=== PATIENT | female | born 2000 | race Caucasian/White ===

== ENCOUNTER → 2020-08-29 13:28 | Outpatient (BNVA) | payer MEDICAID, SELFPAY | PROVIDERS: Visit Provider Advanced Practice Midwife | DX: Z30.017 Encounter for initial prescription of implantable subdermal contraceptive (principal) | CPT/HCPCS: 11981; 11982 ==

== ENCOUNTER 2024-02-23 15:15 | Outpatient (REF) | payer MEDICAID, SELFPAY ==
[2024-02-23 16:52] LABS: Estimated Average Glucose 100 mg/dL; Hemoglobin A1c % 5.1 % (<6.0)
[2024-02-23 16:57] LABS: Alanine Aminotransferase 13 U/L (0-31); Albumin Level 4.4 g/dL (3.5-5.0); Alkaline Phosphatase 72 U/L (39-117); Anion Gap 13 (12-20); Aspartate Amino Transferase 16 U/L (5-31); Bilirubin Total 0.4 mg/dL (0.0-1.0); Blood Urea Nitrogen 12 mg/dL (9-16); Calcium 9.6 mg/dL (8.4-10.2); Carbon Dioxide 25 mmol/L (22-29); Chloride 104 mmol/L (96-108); Cholesterol 104 mg/dL (<200); Estimated Glomerular Filt Rate > 60; Glucose Random 98 mg/dL (60-115); HDL Cholesterol 44 mg/dL (>40); LDL Cholesterol Calculated 50 mg/dL (<100); Potassium 4.1 mmol/L (3.3-5.1); Sodium 138 mmol/L (135-145); Total Protein 7.6 g/dL (6.5-8.0); Triglycerides 51 mg/dL (<150)
[2024-02-23 17:15] LABS: TSH reflex Free T4 0.66 uIU/mL (0.32-4.0)
[2024-02-23 17:23] LABS: Reflex LDLD? No
== END 2024-02-23 15:16 | disposition home or self-care (01) ==
LOC: HO.HHCL 15:15
PROVIDERS: Visit Provider Family Medicine
DX: E66.09 Other obesity due to excess calories (principal); Z83.3 Family history of diabetes mellitus; Z68.32 Body mass index [BMI] 32.0-32.9, adult
CPT/HCPCS: 36415; 80053; 80061; 83036; 84443

== ENCOUNTER 2025-07-02 14:08 | Outpatient (REF) | payer OTHER, SELFPAY ==
--- OUTSIDE RECORDS SUMMARY | 2025-07-02 11:15 | XMS_ITS | Encounter Summary ---
Author Organization [employer] Address [address] [facility] [facility] 7 [place] [address] Care Team Providers Care Rug Dyer Helper Name Role Phone Addie Morales MD Primary Care Provider [phone] Encounter Details Date Type Department Care Team (Late st Contact Info) Description 07/02/2025 11:15 AM EDT Office Visit [facility] [address] [place], [place] [phone] Rashida Chen FNP [address] [place] [address] Vaginal discharge (Primary Dx); Sensation of pressure in bladder area Social History Tobacco Use Types Packs/Day Years Used Date Smoking Tobacco: Never Passive Smoke Exposure: Never Smokeless Tobacco: Never Alcohol Use Standard Drinks/Week Comments Yes 0 (1 standard drink = 0.6 oz pur e alcohol) Depression Answer Date Recorded Patient Health Questionnaire-9 Score 0 02/23/2024 Patient Health Questionnaire-9 Score 0 02/23/2024 Last PHQ-9: Questionnaire Data Not on file 0 02/23/2024 Housing Stability Answer Date Recorded What is your housing situation today? I have christian mckenzie 02/23/[address] you li ve. Do you have problems with any of the following? None of the above 02/23/2024 Food Insecurity Answer Date Recorded Within the past 12 months, y ou worried that your food would run out before you got money to buy more: Never True 02/23/2024 Within the past 12 months,th e food you bought just didn't last and you didn't have enough money to get more: Never True 10/2023 Transportation Answer Date Recorded In the past 12 months, has l ack of transportation kept you from medical appts, meetings, work or from getting things needed for daily living? No 02/23/2024 Utilities Answer Date Recorded In the past 12 months, has t he electric, gas, oil or water company threatened to shut off services in your home? No 02/23/2024 Depression Answer Date Recorded Patient Health Questionnaire-2 Score 0 02/23/2024 Comments No Sex and Gender Information Value Date Recorded Sex Assigned at Female 08/24/2022 10:26 AM EDT Legal Sex Female 10:26 AM EDT Gender Identity Female 08/24/2022 10:26 AM EDT Sexual Orientation Straight 08/24/2022 10 :26 AM EDT documented as of this encounter Last Filed Vital Signs Vital Sign Reading Time Taken Comments Blood Pressure 112/66 07/02/2025 11:06 AM EDT Pulse 67 07/02/2025 11:06 AM EDT Temperature 36.8 C (98.3 F) 07/02/2025 11:06 AM EDT Respiratory Rate 16 07/02/2025 11:06 AM EDT Oxygen Saturation 98% 07/02/2025 11:06 AM EDT Inhaled Oxygen Concentration - - Weight 71 kg (156 lb 8 oz) 07/02/2025 11:06 AM E DT Height 150.7 cm (4' 11.35 ) 07/02/2025 11:06 AM EDT Body Mass Index 31.24 07/02/2025 11:06 AM EDT documented in this encounter Progress Notes * TERESA Pradhan - 07/02/2025 11:15 AM EDT Candido Patel, 24 years who presents for acute visit Vaginal Odor and Discharge - Irregular periods after insertion of Nexplanon, with current implant placed 2 years ago - Periods became regular after initial irregularity, then developed strong vaginal odor about 1 year ago, especially after intercourse and before menstrual cycle - Odor described as very strong and unpleasant, persistent despite frequent washing - Noted grayish or grayish-white discharge, sometimes straight green, occasionally increased in quantity requiring frequent underwear changes - Odor and discharge present almost daily, worse after sex - Family history of cervical cancer (mother underwent hysterectomy 2-3 years ago) - No prior treatment or sample collection for odor/discharge - Partner changed diet in attempt to help with symptoms - Skipped period in May 2025 - Used [id number] boric acid suppository on prior to visit, based on family advice - Developed vaginal bleeding starting Sunday, June 29, 2025, described as vibrant red and different from usual menstrual blood - Bleeding lasted Wednesday through Wednesday, resolved by morning of July 02, 2025 - Severe pelvic pain during bleeding, described as similar to labor pain, resolved after taking ibuprofen on July 01, 2025 - No pain since July 01, 2025 Urinary Symptoms - Reports persistent pressure sensation in pelvic area, especially when needing to urinate and while sitting - Denies pain with urination Other Symptoms - Denies pain or bleeding with intercourse - Denies nausea or vomiting - Denies fever, chills, headache or pelvic pain Problem List[1] Allergies[2] Review of Systems Constitutional: Negative for chills, fatigue and fever. Respiratory: Negative for cough, chest tightness, shortness of breath and wheezing. Cardiovascular: Negative for chest pain and palpitations. Gastrointestinal: Negative for abdominal distention, abdominal pain, constipation, diarrhea, nauseaand vomiting. Skin: Negative for pallor. Neurological: Negative for dizziness, syncope, speech difficulty, weakness, light-headedness, numbness and headaches. Vitals: 07/02/25 1106 BP: 112/66 BP Location: Left arm Patient Position: Sitting BP Cuff Size: Adult Pulse: 67 Resp: 16 Temp: 98.3 ??F (36.8 ??C) TempSrc: Oral SpO2: 98% Weight: 156 lb 8 oz (71 kg) Height: 4' 11.35 (1.507 m) Physical Exam Constitutional: Appearance: Normal appearance. HENT: Head: Normocephalic and atraumatic. Right Ear: Tympanic membrane, ear canal and external ear normal. Left Ear: Tympanic membrane, ear canal and external ear normal. Nose: Nose normal. No congestion. Mouth/Throat: Mouth: Mucous membranes are moist. Pharynx: Oropharynx is clear. Eyes: Extraocular Movements: Extraocular movements intact. Pupils: Pupils are equal, round, and reactive to light. Cardiovascular: Rate and Rhythm: Normal rate and regular rhythm. Pulses: Normal pulses. Heart sounds: Normal heart sounds. No murmur heard. Pulmonary: Effort: Pulmonary effort is normal. Breath sounds: Normal breath sounds. No wheezing. Chest: Chest wall: No tenderness. Abdominal: General: Abdomen is flat. Bowel sounds are normal. Palpations: Abdomen is soft. Tenderness: There is no abdominal tenderness. There is no right CVA tenderness, left CVA tenderness, guarding or rebound. Musculoskeletal: General: Normal range of motion. Cervical back: Normal range of motion. Right lower leg: No edema. Left lower leg: No edema. Skin: General: Skin is warm and dry. Capillary Refill: Capillary refill takes less than 2 seconds. Findings: No bruising. Neurological: General: No focal deficit present. Mental Status: She is alert and oriented to person, place, and time. Cranial Nerves: No cranial nerve deficit. Sensory: No sensory deficit. Psychiatric: Mood and Affect: Mood normal. Behavior: Behavior normal. Thought Content: Thought content normal. Judgment: Judgment normal. Assessment & Plan Vaginal discharge - Vaginal discharge with fishy odor, bar or greenish color, and increased volume is most likely bacterial vaginosis (BV). Differential diagnosis includes candidiasis and trichomoniasis. - Explained to patient bleeding and cramping most likely r/t menses. Boric acid may cause burning and irritation. - Ordered BV panel including tests for Connie and trichomonas. Advised to avoid intravaginal products such as boric acid and douching. Will review results and initiate appropriate treatment if indicated. Orders: Bacterial Vaginosis Panel Sensation of pressure in bladder area Negative for pelvic / lower abdominal pain Reports sensation of pressure in bladder area before and after urination Negative for flank blood, itch or fever Ordered urine analysis with reflex to culture Orders: Urinalysis, Complete, with Reflex to Culture; Future Current Medications[3] [employer] Resident Attestation: [employer] , have reviewed the resident's note and agree with the assessment & plan of care as documented above. [1] Patient Active Problem List Diagnosis Allergic rhinitis Asthma Posttraumatic stress disorder Mixed anxiety and depressive disorder [2] No Known Allergies [3] Current Outpatient Medications: albuterol 108 (90 Base) MCG/ACT inhaler, Inhale 2 puffs every 4 (four) hours if needed for wheezingor shortness of breath. Maximum 8 puffs per day, Disp: 18 g, Rfl: 3 ibuprofen 800 MG tablet, Take one tablet with food every eight hours x 7 days for vaginal bleeding., Disp: 21 tablet, Rfl: 0 documented in this encounter Miscellaneous Notes * Assessment & Plan Note - TERESA Pradhan - 07/02/2025 11:15 AM EDT Associated Problem(s): Vaginal discharge - Vaginal discharge with fishy odor, bar or greenish color, and increased volume is most likely bacterial vaginosis (BV). Differential diagnosis includes candidiasis and trichomoniasis. - Explained to patient bleeding and cramping most likely r/t menses. Boric acid may cause burning and irritation. - Ordered BV panel including tests for Connie and trichomonas. Advised to avoid intravaginal products such as boric acid and douching. Will review results and initiate appropriate treatment if indicated. Orders: Bacterial Vaginosis Panel * Assessment & Plan Note - TERESA Pradhan - 07/02/2025 11:15 AM EDT Associated Problem(s): Sensation of pressure in bladder area Negative for pelvic / lower abdominal pain Reports sensation of pressure in bladder area before and after urination Negative for flank blood, itch or fever Ordered urine analysis with reflex to culture Orders: Urinalysis, Complete, with Reflex to Culture; Future documented in this encounter Plan of Treatment Upcoming Encounters Date Type Department Care Team (Late st Contact Info) Description 07/25/2025 3:00 PM EDT Procedure Visit [facility] [address] [place] [address] Shandra Davis CNM [address] [place] [address] 08/20/2025 2:00 PM EDT Office Visit [facility] [address] [place] [address] Addie Morales MD [address] [place] [address] Scheduled Orders Name Type Priority Associated Diagnoses Orde r Schedule Urinalysis, Complete, with Reflex to Culture Lab Routine Sensation of pressure in bladder area Expected: 07/02/2025 (Approximate), Expires: 07/02/2026 documented as of this encounter Procedures Procedure Name Priority Date/Time Associated Diagnosis Comments BACTERIAL VAGINOSIS PANEL Routine 07/02/2025 11:30 AM EDT Vaginal discharge documented in this encounter Results * Bacterial Vaginosis Panel (07/02/2025 11:30 AM EDT) TRICHOMONAS VAGINALIS DETECTION BY PCR NOT DETECTED Not Detect [facility] BACTERIAL VAGINOSIS DETECTION BY PCR NEGATIVE Negative [facility] Comment:The BV organism targ ets of the Xpert Xpress MVP test can becommensal in women; Xpert Xpress MVP positive results forbacterial vaginosis should be considered in conjunction withother clinical and patient information to determine thedisease status. Organisms that are not detected by the XpertXpress MVP test have also been reported to be associatedwith BV and aerobic vaginitis.The Xpert Xpress MVP test performance has not been evaluatedin patients under the age of 14. CONNIE GROUP DETECTION BY PCR NOT DETECTED Not Detect [facility] Connie glab krusei PCR NOT DETECTED Not Detect [facility] Swab Vaginal structure / Unknown 07/02/2025 11:30 AM EDT 07/02/2025 2:24 PM EDT us Rashida [facility] MICROBIOLOGY - GENERAL ORD ERABLES Final Result [facility] [address] [place] [address] [phone] documented in this encounter Visit Diagnoses Diagnosis Vaginal discharge- Primary Leukorrhea, not specified as infective Sensation of pressure in bladder area documented in this encounter Additional Health Concerns Assessment Noted Time PHQ-9 Depression Total Score: 0 02/23/20 24 2:19 PM EDT documented as of this encounter Care Teams Rug Dyer Helper Relationship Specialty Start Date End Date Addie Morales MD [address] [place] [address] PCP - General Family Medicine 08/08/14 documented as of this encounter
[2025-07-02 14:30] LABS: Appearance Urine Clear; Glucose Urine UA Negative (Negative); PH 7.5 (5.0-9.0); Specific Gravity - Urine 1.015 (1.005-1.025); UMIC TRIGGER UACC YES
[2025-07-02 15:05] LABS: UACC Culture Trigger YES
[2025-07-02 15:40] LABS: Bacterial Vaginosis PCR NEGATIVE (Negative); Candida Group PCR NOT DETECTED (Not Detect); Candida glab krusei PCR NOT DETECTED (Not Detect); Trichomonas vaginalis PCR NOT DETECTED (Not Detect)
--- OUTSIDE RECORDS SUMMARY | 2025-07-02 16:31 | XMS_ITS | Encounter Summary ---
Author Organization [employer] Address [address] [facility] [address] [address] [place] [address] Care Team Providers Care Manager Reliability Name Role Phone Addie Morales MD Primary Care Provider Reason for Visit * Reason Onset Date Comments Chart Prep 06/29/2025 Encounter Details Date Type Department Care Team ([facility] st Contact Info) Description 06/29/2025 Telephone [facility] [address] [place], [place] [phone] Rashida Chen FNP [address] [place] [address] Chart Prep Social History Tobacco Use Types Packs/Day Years [...] AM EDT documented as of this encounter Miscellaneous Notes * Telephone Encounter - Adri Steele [place] - 06/29/2025 9:18 AM EDT Chart Prep Labs: not applicable Images: not applicable Referrals: not applicable Vaccines due: Covid, Flu, and PCV20 Screenings: LMP and HIV, HEP C. Overdue care gaps: SBIRT, SDOH, PHQ-9, GAGE-7, Oral health screening, Disability screen, and Tobacco documented in this encounter Plan of Treatment Upcoming Encounters Date Type Department Care Team (Late st Contact Info) Description 07/25/2025 3:00 PM EDT Procedure Visit [facility] [address] [place] [phone] Shandra Davis CNM [address] [place] [address] 08/20/2025 2:00 PM EDT Office Visit [facility] [address] [place] [address] [phone] Addie Morales MD [address] [place] [address] documented as of this encounter Visit Diagnoses Not on filedocumented in this encounter Additional Health Concerns Assessment Noted Time PHQ-9 Depression Total Score: 0 02/23/20 24 2:19 PM EDT documented as of this encounter Care Teams Manager Reliability Relationship Specialty Start Date End Date Addie Morales MD [address] [place] [address] PCP - General Family Medicine 08/08/14 documented as of this encounter
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
--- OUTSIDE RECORDS SUMMARY | 2025-07-02 16:31 | XMS_ITS | Encounter Summary ---
Author Organization [employer] Address [address] [place] [address] 7 [place] [address] Care Team Providers Care E D Tech Name Role Phone Addie Morales MD Primary Care Provider [phone] Reason for Visit * Reason Onset Date Comments Results 07/02/2025 Encounter Details Date Type Department Care Team ([facility] st Contact Info) Description 07/02/2025 Results Follow-Up [facility] [address] [place] [address] Rashida Chen FNP [address] [place] [address] Urinalysis w/reflex microscopic, Urinalysis, Complete, with Reflex to Culture Social History Tobacco Use Types Packs/Day Years [...] encounter Miscellaneous Notes * Telephone Encounter - Brunilda Tomas RN - 07/02/2025 4:16 PM EDT TC placed to pt to inform and advise of below provider message. No answer, LVM to call office back and ask to speak to the blue team nurses. Will task for re- attempt on 07/03/25. ----- Message from Rashida Chen sent at 07/02/2025 4:08 PM EDT ----- Please can you let Candido know her tests came back negative for BV, salbador, trich. Anytime she feels symptoms she should come to the clinic or [place] so that we can do labs. However she is positive for UTI and have sent antibiotics to her Pharmacy Thank you ----- Message ----- From: Interface, Lab Results In Sent: 07/02/2025 2:31 PM EDT To: TERESA Pradhan * Result Encounter Note - TERESA Pradhan - 07/02/2025 4:08 PM EDT Please can you let Candido know her tests came back negative for BV, salbador, trich. Anytime she feels symptoms she should come to the clinic or [facility] so that we can do labs. However she is positive for UTI and have sent antibiotics to her Pharmacy Thank you documented in this encounter Plan of Treatment Upcoming Encounters Date Type Department Care Team (Late st Contact Info) Description 07/25/2025 3:00 PM EDT Procedure Visit [facility] [address] [place] [phone] Shandra Davis CNM [address] [place], [place] [phone] 08/20/2025 2:00 PM EDT Office Visit [facility] [address] [place], [place] [phone] Addie Morales MD [address] [place] [address] [phone] documented as of this encounter Visit Diagnoses Diagnosis Acute cystitis without hematuria- Primary documented in this encounter Additional Health Concerns Assessment Noted Time PHQ-9 Depression Total Score: 0 02/23/20 24 2:19 PM EDT documented as of this encounter Care Teams E D Tech Relationship Specialty Start Date End Date Addie Morales MD [address] [place] [phone] PCP - General Family Medicine 08/08/14 documented as of this encounter
--- OUTSIDE RECORDS SUMMARY | 2025-07-02 16:31 | XMS_ITS | Encounter Summary ---
Author Organization [employer] Address [address] [facility] 7t [place] [address] Care Team Providers Care Feed Grinder Name Role Phone Addie Morales MD Primary Care Provider [phone] Encounter Details Date Type Department Care Team (Late st Contact Info) Description 07/02/2025 Orders Only [facility] [address] [place], [place] [phone] Rashida Chen FNP [address] [place] [address] Social History Tobacco Use Types Packs/Day Years [...] AM EDT documented as of this encounter Plan of Treatment Upcoming Encounters Date Type Department Care Team (Late st Contact Info) Description 07/25/2025 3:00 PM EDT Procedure Visit [facility] [address] [place] [phone] Shandra Davis CNM [address] [place] [address] 08/20/2025 2:00 PM EDT Office Visit [facility] [address] [place] [phone] Addie Morales MD [address] [place] [address] documented as of this encounter Procedures Procedure Name Priority Date/Time Associated Diagnosis Comments URINALYSIS, COMPLETE, WITH REFLEX TO CULTURE Routine 07/02/2025 11:30 AM EDT URINALYSIS WITH REFLEX MICROSCOPIC Routine 07/02/2025 11:30 AM EDT documented in this encounter Results * (ABNORMAL) Urinalysis, Complete, with Reflex to Culture (07/02/2025 11:30 AM EDT) Color Urine Yellow [facility] Appearance Urine Clear [facility] PH 7.5 5.0 - 9.0 [facility] Glucose Urine UA Negative Negative mg/dL [facility] Urine Blood Moderate (2+)(A) Negative [facility] Specific [place] - Urine 1.015 1.005 - 1.025 [facility] Urine Protein Negative Neg-Trace mg/dL [facility] Urine Ketones Negative Negative mg/dL [facility] Nitrite Urine Negative Negative [facility] Leukocyte Esterase Urine Moderate (2+)(A) Negative [facility] RBC Urine 0-2 0 - 2 /HPF [facility] Urine WBC 0-5 0 - 5 /HPF [facility] Urine Squamous Epithelial Cell 0-2 0 - 2 /HPF [facility] Urine Bacteria None Seen None Seen [facility] Hyaline Casts, Urine 0-2 0 - 2 /LPF [facility] 07/02/2025 11:3 0 AM EDT 07/02/2025 2:25 PM EDT Narrative [facility] - 07/02/2025 3:06 PM EDT Urine, Clean Catch us Rashida Chen [facility] LAB URINE ORDERABLES Final Res ult [facility] [address] [place] [phone] * (ABNORMAL) Urinalysis w/reflex microscopic (07/02/2025 11:30 AM EDT) Color Urine Yellow [facility] Appearance Urine Clear [facility] PH 7.5 5.0 - 9.0 [facility] Glucose Urine UA Negative Negative mg/dL [facility] Urine Blood Moderate (2+)(A) Negative [facility] Specific [place] - Urine 1.015 1.005 - 1.025 [facility] Urine Protein Negative Neg-Trace mg/dL [facility] Urine Ketones Negative Negative mg/dL [facility] Nitrite Urine Negative Negative [facility] Leukocyte Esterase Urine Moderate (2+)(A) Negative [facility] 07/02/2025 11:3 0 AM EDT 07/02/2025 2:25 PM EDT Narrative [facility] - 07/02/2025 2:31 PM EDT Urine, Clean Catch us Rashidavijay Pierredouglas SENIOR MICROSTRATEGY DEVELOPER LAB URINE ORDERABLES Final Res ult [facility] [address] [place] [phone] documented in this encounter Visit Diagnoses Not on filedocumented in this encounter Additional Health Concerns Assessment Noted Time PHQ-9 Depression Total Score: 0 02/23/20 24 2:19 PM EDT documented as of this encounter Care Teams Feed Grinder Relationship Specialty Start Date End Date Addie Morales MD [address] [place] [address] PCP - General Family Medicine 08/08/14 documented as of this encounter
--- OUTSIDE RECORDS SUMMARY | 2025-07-02 16:31 | XMS_ITS | Encounter Summary ---
Author Organization [employer] Address [address] [facility] 7 [place] [address] Care Team Providers Care Dehydrogenation Operator Name Role Phone Addie Morales MD Primary Care Provider [phone] Encounter Details Date Type Department Care Team ([facility] st Contact Info) Description 07/02/2025 Results Follow-Up [facility] [address] [place] [address] Rashida Chen FNP [address] [place] [address] Bacterial Vaginosis Panel Social History Tobacco Use Types Packs/Day Years [...] Description 07/25/2025 3:00 PM EDT Procedure Visit [facility] [address] [place] [phone] Shandra Davis CNM [address] [place] [address] 08/20/2025 2:00 PM EDT Office Visit [facility] [address] [place] [phone] Addie Morales MD [address] [place] [phone] documented as of this encounter Visit Diagnoses Not on filedocumented in this encounter Additional Health Concerns Assessment Noted Time PHQ-9 Depression Total Score: 0 02/23/20 24 2:19 PM EDT documented as of this encounter Care Teams Dehydrogenation Operator Relationship Specialty Start Date End Date Addie Morales MD [address] [place] [phone] PCP - General Family Medicine 08/08/14 documented as of this encounter
--- OUTSIDE RECORDS SUMMARY | 2025-07-02 16:31 | XMS_ITS | Encounter Summary ---
Author Organization [employer] Address 75 [facility] 7 [place] [address] Care Team Providers Care Keypunch Operator Name Role Phone Addie Morales MD Primary Care Provider [phone] Reason for Visit * Reason Onset Date Comments Nurse Triage 06/28/2025 Encounter Details Date Type Department Care Team ([facility] st Contact Info) Description 06/28/2025 Telephone [facility] MEDICINE [address] [place], [place] [phone] Addie Morales MD 230 [place], [place] [phone] Nurse Triage Social History Tobacco Use Types Packs/Day Years [...] encounter Miscellaneous Notes * Telephone Encounter - Carolyn Franklin RN - 06/28/2025 11:37 AM EDT Call returned to Candido Patel to triage below at [phone]. Reports used boric acid last night. Pt now having abdominal cramping and light pink spotting. Per pt cramping is constant. Pt currently on Nexplanon, has had over 6 years. Pt has had a regular menses with occasional missed period for only 1 month. Pt did not have a menses last month. Pt states has used boric acid suppository in the past and not had these sx. Pt denies any urinary sx or vaginal discharge prior to use or after. Pt does endorse having had some vaginal odor for a few weeks which is what prompted use of boric acid. Pt advised of disposition, declines appt tomorrow due to work schedule. Given appt for Wednesday. Given strict precautions to seek UC Or ER if bleeding becomes heavy, cramping becomes severe, nausea or vomiting develops. Pt agrees. Will forward to PCP as FYI. Protocol Used: Vaginal Bleeding - Abnormal (Adult) Protocol-Based Disposition: Home Care Positive Triage Question: * Has Implanon subdermal implant * All higher-acuity triage questions were negative Care Advice Discussed: * Reassurance and Education - Implanon or Depo-Provera * Reasons To Call Back - Irregular bleeding occurs more than 2 cycles (2 months) - Bleeding becomes worse - You become worse * Telephone Encounter - Juanita Jimi Zamorano - 06/28/2025 11:25 AM EDT Symptoms: Medication Reaction, Menstrual Periods Absent or Missed Outcome: Schedule an urgent appointment (within 1 hour) or talk to a nurse or provider soon Reason: Caller denied all higher acuity questions The caller accepted this outcome. Contact pt at [phone] documented in this encounter Plan of Treatment Upcoming Encounters Date Type Department Care Team (Late st Contact Info) Description 07/25/2025 3:00 PM EDT Procedure Visit [facility] MEDICINE [address] [place] [phone] Shandra Davis CNM [address] [place] [address] 08/20/2025 2:00 PM EDT Office Visit [facility] MEDICINE [address] [place] [address] Addie Morales MD [address] [place] [address] documented as of this encounter Visit Diagnoses Not on filedocumented in this encounter Additional Health Concerns Assessment Noted Time PHQ-9 Depression Total Score: 0 02/23/20 24 2:19 PM EDT documented as of this encounter Care Teams Keypunch Operator Relationship Specialty Start Date End Date Addie Morales MD [address] [place] [address] PCP - General Family Medicine 08/08/14 documented as of this encounter
--- OUTSIDE RECORDS SUMMARY | 2025-07-02 16:31 | XMS_ITS | Encounter Summary ---
Author Organization [employer] Address 75 [facility] 7t [place] [address] Care Team Providers Care Merchandise Support Associate Name Role Phone Addie Morales MD Primary Care Provider [phone] Encounter Details Date Type Department Care Team (Latest Contact Info) Description 07/02/2025 Travel Social History Tobacco Use Types Packs/Day Years [...] Description 07/25/2025 3:00 PM EDT Procedure Visit [facility] MEDICINE [address] [place] [address] Shandra Davis CNM [address] [place] [address] 08/20/2025 2:00 PM EDT Office Visit [facility] MEDICINE [address] [place] [address] Addie Morales MD [address] [place] [address] [phone] documented as of this encounter Visit Diagnoses Not on filedocumented in this encounter Additional Health Concerns Assessment Noted Time PHQ-9 Depression Total Score: 0 02/23/20 24 2:19 PM EDT documented as of this encounter Care Teams Merchandise Support Associate Relationship Specialty Start Date End Date Addie Morales MD [address] [place] [address] [phone] PCP - General Family Medicine 08/08/14 documented as of this encounter
--- OUTSIDE RECORDS SUMMARY | 2025-07-02 16:31 | XMS_ITS | Encounter Summary ---
Author Organization [employer] Address 75 [facility] [address], [place] [address] Care Team Providers Care Hogshead Stripper Name Role Phone Addie Morales MD Primary Care Provider [phone] Reason for Visit * Reason Onset Date Comments Appointment Request 06/28/2025 Encounter Details Date Type Department Care Team ([facility] st Contact Info) Description 06/28/[address] [facility] MEDICINE 230 [place], [place] [phone] Addie Morales MD 230 [place], [place] [phone] Appointment Request Social History Tobacco Use Types Packs/Day Years [...] encounter Miscellaneous Notes * Telephone Encounter - Carlee Gudino RN - 06/28/2025 3:37 PM EDT Telephone call returned to pt regarding below message. Pt reports would like appt to remove nexplanon as she would like to become again. Informed Shandra doesn't have availability until July but I can schedule with alternate provider who can remove nexplanon sooner. P declined, states like Shandra and is willing to wait to see her as she would also like to discuss conception and if she needs any labs and/or imaging to see if she is ready to conceive. Booked for 07/25/25 with Shandra.Pt verbalized understanding and denied having any further questions or concerns at this time. * Telephone Encounter - Juanita Zamorano - 06/28/2025 11:24 AM EDT Tc from pt requesting an following ginger. Pt thinking of possible removing nexplanon Contact pt at [phone] documented in this encounter Plan of Treatment Upcoming Encounters Date Type Department Care Team ([facility] st Contact Info) Description 07/25/2025 3:00 PM EDT Procedure Visit [facility] MEDICINE [address] [place] [address] Shandra Davis CNM 230 [place], [place] [phone] 08/20/2025 2:00 PM EDT Office Visit [facility] MEDICINE 230 [place], [place] [phone] Addie Morales MD 230 [place], [place] [phone] documented as of this encounter Visit Diagnoses Not on filedocumented in this encounter Additional Health Concerns Assessment Noted Time PHQ-9 Depression Total Score: 0 02/23/20 24 2:19 PM EDT documented as of this encounter Care Teams Hogshead Stripper Relationship Specialty Start Date End Date Addie Morales MD [address] [place] [address] [phone] PCP - General Family Medicine 08/08/14 documented as of this encounter
== END 2025-07-02 14:09 | disposition home or self-care (01) ==
LOC: HO.HHCLNP 14:08
PROVIDERS: Visit Provider Nurse Practitioner Family
DX: N89.8 Other specified noninflammatory disorders of vagina (principal)
CPT/HCPCS: 81001; 81515; 87086

== ENCOUNTER 2025-07-10 09:38 | Outpatient (REF) | payer OTHER, SELFPAY ==
--- OUTSIDE RECORDS SUMMARY | 2025-07-10 09:00 | XMS_ITS | Encounter Summary ---
Author Organization [employer] Address [address] [place] [address] Care Team Providers Care Social Work Administrator Name Role Phone Addie Morales MD Primary Care Provider [phone] Reason for Referral * Imaging (Urgent) - Pending Review Specialty Diagnoses / Procedures Referred By Magdalene price Referred To Contact Radiology Diagnoses RUQ pain Lower abdominal pain Procedures CT Abdomen Pelvis w/ Contrast Addie Morales MD [address] [place] [address] Phone: tel: fax: Referral ID Status Reason Start Date Expiration Date V isits Requested Visits Authorized [id number] Pending Review 07/10/2025 07/10/2026 1 1 Encounter Details Date Type Department Care Team (Late st Contact Info) Description 07/10/2025 9:00 AM EDT Office Visit [facility] MEDICINE 230 [place], [place] [phone] Addie Morales MD 230 [place], [place] [phone] Lower abdominal pain (Primary Dx); Abnormal uterine bleeding (AUB); Nipple discharge; RUQ pain Social History Tobacco Use Types Packs/Day Years Used Date Smoking Tobacco: Never Passive Smoke Exposure: Never Smokeless Tobacco: Never Alcohol Use Standard Drinks/Week Comments Yes 0 (1 standard drink = 0.6 oz pur e alcohol) Depression Answer Date Recorded Patient Health Questionnaire-9 Score 7 07/10/2025 Patient Health Questionnaire-9 Score 7 07/10/2025 Last PHQ-9: Questionnaire Data Not on file 0 07/10/2025 Housing Stability Answer Date Recorded What is your housing situation today? I have christian mckenzie 07/10/[address] you li ve. Do you have problems with any of the following? I am not sure 07/10/2025 Food Insecurity Answer Date Recorded Within the past 12 months, y ou worried that your food would run out before you got money to buy more: Never True 07/10/2025 Within the past 12 months,th e food you bought just didn't last and you didn't have enough money to get more: Never True Transportation Answer Date Recorded In the past 12 months, has l ack of transportation kept you from medical appts, meetings, work or from getting things needed for daily living? No 07/10/2025 Utilities Answer Date Recorded In the past 12 months, has t he electric, gas, oil or water company threatened to shut off services in your home? I am not sure 07/10/2025 Depression Answer Date Recorded Patient Health Questionnaire-2 Score 2 07/10/2025 Internet Access Answer Date Recorded Internet Access Q1 I am not sure 07/10/2025 Internet Access Q2 Not on file 07/10/2025 Comments No Sex and Gender Information Value Date Recorded Sex Assigned at Female 08/24/2022 10:26 AM EDT Legal Sex Female 10:26 AM EDT Gender Identity Female 08/24/2022 10:26 AM EDT Sexual Orientation Straight 08/24/2022 10 :26 AM EDT documented as of this encounter Last Filed Vital Signs Vital Sign Reading Time Taken Comments Blood Pressure 120/70 07/10/2025 9:07 AM EDT Pulse 56 07/10/2025 9:07 AM EDT Temperature 36 C (96.8 F) 07/10/2025 9:07 AM EDT Respiratory Rate 12 07/10/2025 9:07 AM EDT Oxygen Saturation - - Inhaled Oxygen Concentration - - Weight 68.6 kg (151 lb 3.2 oz) 07/10/2025 9:07 A M EDT Height 151.6 cm (4' 11.69 ) 07/10/2025 9:07 AM E DT Body Mass Index 29.84 07/10/2025 9:07 AM EDT documented in this encounter Functional Status * Over the past 2 weeks, how often have you been bothered by any of the following problems? Question Answer Date of Assessment Author Patient Health Questionnaire -2 Score 2 07/10/2025 9:31 AM Milana Flynn MA * Little interest or pleasure in doing things Answer Date of Assessment Author More than half the days 07/10/2025 9:31 AM Zee Bragg MA * Feeling down, depressed, or hopeless Answer Date of Assessment Author Not at all 07/10/2025 9:31 AM Zee Flynn MA * Trouble falling or staying asleep, or sleeping too much Answer Date of Assessment Author Several days 07/10/2025 9:31 AM Zee Flynn MA * Feeling tired or having little energy Answer Date of Assessment Author Nearly every day 07/10/2025 9:31 AM Zee Flynn MA * Poor appetite or overeating Answer Date of Assessment Author Not at all 07/10/2025 9:31 AM Zee Flynn MA * Feeling bad about yourself - or that you are a failure or have let yourself or your family down Answer Date of Assessment Author Not at all 07/10/2025 9:31 AM Zee Flynn MA * Trouble concentrating on things, such as reading the newspaper or watching television Answer Date of Assessment Author Several days 07/10/2025 9:31 AM Zee Flynn MA * Moving or speaking so slowly that other people could have noticed? Or the opposite - being so fidgety or restless that you have been moving around a lot more than usual. Answer Date of Assessment Author Not at all 07/10/2025 9:31 AM Zee Flynn MA * Thoughts that you would be better off or hurting yourself in some way Answer Date of Assessment Author Not at all 07/10/2025 9:31 AM Zee Flynn MA * Patient Health Questionnaire-9 Score Answer Date of Assessment Author 7 07/10/2025 9:31 AM Zee Flynn MA * How difficult have these problems made it for you to do your work, take care of things at home, or get along with other people? Answer Date of Assessment Author Somewhat difficult 07/10/2025 9:31 AM EDT Zee Galarza MA * Over the last 2 weeks, how often have you been bothered by any of the following problems? Question Answer Date of Assessment Author Feeling nervous, anxious, or on edge 2 07/10/2025 9:30 AM EDT Milana Lynn MA Not being able to stop or control worrying 2 07/10/2025 9:30 AM EDT Milana Lynn MA Worrying too much about different things 2 07/10/2025 9:30 AM EDT Milana Lynn MA Trouble relaxing 2 07/10/2025 9:30 AM EDT Zee Feldman MA Being so restless that it is hard to sit still 2 07/10/2025 9:30 AM MARYANT Milana Lynn MA Becoming easily annoyed or irritable 2 07/10/2025 9:30 AM MARYANT Milana Lynn MA Feeling afraid as if somethi ng awful might happen 3 07/10/2025 9:30 AM MARYANT Milana Lynn MA GAGE-7 Total Score 15 07/10/2025 9:30 AM MARYANT Zee Lynn MA documented as of this encounter Plan of Treatment Upcoming Encounters Date Type Department Care Team (Late st Contact Info) Description 07/25/2025 3:00 PM EDT Procedure Visit [facility] MEDICINE [address] [place] [address] Shandra Davis CNM [address] [place] [address] 08/20/2025 2:00 PM EDT Office Visit [facility] MED[facility]INE [address] [place] [phone] Addie Morales MD 230 [place] [address] Scheduled Orders Name Type Priority Associated Diagnoses Orde r Schedule TSH with Reflex to Free T4 Lab Routine Nipple discharge Expected: 07/10/2025 (Approximate), Expires: 07/10/2026 Prolactin, Dilution Study Lab Routine Nipple discharge Expected: 07/10/2025 (Approximate), Expires: 07/10/2026 CT Abdomen Pelvis w/ Contrast Imaging Urgent RUQ pain Lower abdominal pain Expected: 07/10/2025, Expires: 07/10/2026 documented as of this encounter Visit Diagnoses Diagnosis Lower abdominal pain- Primary Abdominal pain, other specified site Abnormal uterine bleeding (AUB) Nipple discharge Other sign and symptom in breast RUQ pain Abdominal pain, right upper quadrant documented in this encounter Additional Health Concerns Assessment Noted Time PHQ-9 Depression Total Score: 7 07/10/20 25 9:31 AM EDT documented as of this encounter Care Teams Social Work Administrator Relationship Specialty Start Date End Date Addie Morales MD [address] [place] [address] PCP - General Family Medicine 08/08/14 documented as of this encounter
--- OUTSIDE RECORDS SUMMARY | 2025-07-10 12:17 | XMS_ITS | Encounter Summary ---
Author Organization [employer] Address 75 [facility] 7 [place] [address] Care Team Providers Care Patient Scheduling Manager Name Role Phone Addie Morales MD Primary Care Provider [phone] Reason for Visit * Reason Onset Date Comments Nurse Triage 07/09/2025 Encounter Details Date Type Department Care Team ([facility] st Contact Info) Description 07/09/[address] [facility] MEDICINE 230 [place], [place] [phone] Addie Morales MD 230 [place], [place] [phone] Nurse Triage Social History Tobacco Use Types [...] Telephone Encounter - Carolyn Franklin RN - 07/09/2025 8:27 AM EDT Per chart review pt seen by Rashida for Vaginal bleeding and pressure on bladder. BV, Tricho and Candidias all negative. Pt was positive for UTI, given Rx for Macrobid originally, then pt requested alt. Dr. Spencer reviewed Culture and no growth shown so advised no abx tx needed. Rashida sent in an Rx fo Bactrim. Pt seen at [facility] ER yesterday for onset of vaginal bleeding again. PT dx with PID, givenrx for Doxycycline 100mg PO BID . Call returned to Candido Patel to triage below patient portal message at [phone]. Pt did get first dose of abx at hospital but vomited shortly after. Has not picked up rx at pharmacy.Pt states did waste picker Rx for bactrim. Had 1 dose left prior to ER visit. Has since discontinued perER recommendations. Pt states after OV with provider here at [facility] patient did not get a call back reg arding plan of care, pt advised that per documentation team RN called patient to inform of results and advised of Macrobid original Rx, and patient requested alternative , when Bactrim was sent. Pt states [facility] which was when was sent to ER. Pt advised of disposition, agrees to sick onsite tomorrow with PCP for follow up. Instructed to follow all ER recommendations. Protocol Used: Recent Medical Visit for Illness Follow-up Call (Adult) Protocol-Based Disposition: See in Office or Video Visit Today or Tomorrow Future Appointments Date Time Provider Department Center 07/10/2025 9:00 AM Addie Morales MD [facility] 07/25/2025 3:00 PM Shandra Davis CNM [facility] 08/20/2025 2:00 PM Addie Morales MD [facility] Insurance verified as active per Real Time Eligibility in [facility]. Video visit offer not recorded Positive Triage Question: * Patient wants to be seen * All higher-acuity triage questions were negative Care Advice Discussed: * Continue Treatment * Reasons To Call Back - You become worse documented in this encounter Plan of Treatment Upcoming Encounters Date Type Department Care Team (Late st Contact Info) Description 07/25/2025 3:00 PM EDT Procedure Visit [address] [address] Shandra Davis CNM 230 [place] [address] 08/20/2025 2:00 PM EDT Office Visit [address] [address] Addie Morales MD [address] [place] [address] documented as of this encounter Visit Diagnoses Not on filedocumented in this encounter Additional Health Concerns Assessment Noted Time PHQ-9 Depression Total Score: 0 02/23/20 24 2:19 PM EDT documented as of this encounter Care Teams Patient Scheduling Manager Relationship Specialty Start Date End Date Addie Morales MD [address] [place] [address] PCP - General Family Medicine 08/08/14 documented as of this encounter
--- OUTSIDE RECORDS SUMMARY | 2025-07-10 12:17 | XMS_ITS | Encounter Summary ---
Author Organization [employer] Address 75 [facility] 7 [place] [address] Care Team Providers Care Openstack Developer Name Role Phone Addie Morales MD Primary Care Provider [phone] Encounter Details Date Type Department Care Team ([facility] st Contact Info) Description 07/02/2025 Results Follow-Up [facility] MEDICINE [address] [place] [address] Rashida Chen FNP [address] [place] [address] Bacterial Vaginosis Panel Social History Tobacco Use [...] Description 07/25/2025 3:00 PM EDT Procedure Visit [facility] MEDICINE [address] [place] [address] Shandra Davis CNM [address] [place] [address] 08/20/2025 2:00 PM EDT Office Visit [facility] MED[facility]INE [address] [place] [address] Addie Morales MD [address] [place] [address] documented as of this encounter Visit Diagnoses Not on filedocumented in this encounter Additional Health Concerns Assessment Noted Time PHQ-9 Depression Total Score: 0 02/23/20 24 2:19 PM EDT documented as of this encounter Care Teams Openstack Developer Relationship Specialty Start Date End Date Addie Morales MD [address] [place] [address] [phone] PCP - General Family Medicine 08/08/14 documented as of this encounter
--- OUTSIDE RECORDS SUMMARY | 2025-07-10 12:17 | XMS_ITS | Encounter Summary ---
Author Organization [employer] Address 75 [facility] 7 [place] [address] Care Team Providers Care Waterfront Director Name Role Phone Addie Morales MD Primary Care Provider [phone] Reason for Visit * Reason Onset Date Comments Nurse Triage 06/28/2025 Encounter Details Date Type Department Care Team ([facility] st Contact Info) Description 06/28/2025 Telephone [facility] MEDICINE 230 [place], [place] [phone] Addie Morales MD 230 [place], [place] [phone] Nurse Triage Social History Tobacco Use Types [...] to Candido Patel to triage below at [phone]. Reports used boric acid last night. Pt [...] caller accepted this outcome. Contact pt at [phone] documented in this encounter Plan of Treatment Upcoming Encounters Date Type Department Care Team (Late st Contact Info) Description 07/25/2025 3:00 PM EDT Procedure Visit [facility] MEDICINE [address] [place] [address] Shandra Davis CNM [address] [place] [address] 08/20/2025 2:00 PM EDT Office Visit [facility] MEDICINE [address] [place] [address] Addie Morales MD [address] [place] [address] documented as of this encounter Visit Diagnoses Not on filedocumented in this encounter Additional Health Concerns Assessment Noted Time PHQ-9 Depression Total Score: 0 02/23/20 24 2:19 PM EDT documented as of this encounter Care Teams Waterfront Director Relationship Specialty Start Date End Date Addie Morales MD [address] [place] [address] PCP - General Family Medicine 08/08/14 documented as of this encounter
--- OUTSIDE RECORDS SUMMARY | 2025-07-10 12:17 | XMS_ITS | Encounter Summary ---
Author Organization [employer] Address 75 [facility] 7 [place] [address] Care Team Providers Care Parker Name Role Phone Addie Morales MD Primary Care Provider Encounter Details Date Type Department Care Team (Late st Contact Info) Description 07/10/2025 Telephone [facility] MEDICINE 230 [place], [place] [phone] Addie Morales MD 230 [place], [place] [phone] Social History Tobacco Use Types Packs/Day Years [...] AM EDT documented as of this encounter Functional Status * Over the [...] Author Not at all 07/10/2025 9:31 AM eZe Flynn MA * Thoughts that you would [...] Assessment Author Somewhat difficult 07/10/2025 9:31 AM Zee Thomas MA * Over the last 2 weeks, how often have you been bothered by any of the following problems? Question Answer Date of Assessment Author Feeling nervous, anxious, or on edge 2 07/10/2025 9:30 AM Milana Flynn MA Not being able to stop or control worrying 2 07/10/2025 9:30 AM Milana Flynn MA Worrying too much about different things 2 07/10/2025 9:30 AM Milana Flynn MA Trouble relaxing 2 07/10/2025 9:30 AM Zee Bragg MA Being so restless that it is hard to sit still 2 07/10/2025 9:30 AM Milana Flynn MA Becoming easily annoyed or irritable 2 07/10/2025 9:30 AM Milana Flynn MA Feeling afraid as if somethi ng awful might happen 3 07/10/2025 9:30 AM Milana Flynn MA GAGE-7 Total Score 15 07/10/2025 9:30 AM Zee Flynn MA documented as of this encounter Plan of Treatment Upcoming Encounters Date Type Department Care Team (Late st Contact Info) Description 07/25/2025 3:00 PM EDT Procedure Visit [facility] MEDICINE [address] [place] [address] Shandra Davis CNM [address] [place] [address] 08/20/2025 2:00 PM EDT Office Visit [facility] MEDICINE [address] [place], [place] [phone] Addie Morales MD 230 [place] [address] documented as of this encounter Visit Diagnoses Not on filedocumented in this encounter Additional Health Concerns Assessment Noted Time PHQ-9 Depression Total Score: 7 07/10/20 25 9:31 AM EDT documented as of this encounter Care Teams Parker Relationship Specialty Start Date End Date Addie Morales MD Magdalena [place], [place] [phone] PCP - General Family Medicine 08/08/14 documented as of this encounter
--- OUTSIDE RECORDS SUMMARY | 2025-07-10 12:17 | XMS_ITS | Encounter Summary ---
Author Organization [employer] Address [address] [facility] 7t [place] [address] Care Team Providers Care Experimental Box Tester Name Role Phone Addie Morales MD Primary Care Provider [phone] Encounter Details Date Type Department Care Team (Latest Contact Info) Description 07/10/2025 Travel Social History Tobacco Use Types Packs/Day [...] Description 07/25/2025 3:00 PM EDT Procedure Visit [facility] [address] [place] [address] Shandra Davis CNM [address] [place] [address] 08/20/2025 2:00 PM EDT Office Visit [facility] [address] [place] [address] Addie Morales MD 230 [place] [address] documented as of this encounter Visit Diagnoses Not on filedocumented in this encounter Additional Health Concerns Assessment Noted Time PHQ-9 Depression Total Score: 7 07/10/20 25 9:31 AM EDT documented as of this encounter Care Teams Experimental Box Tester Relationship Specialty Start Date End Date Addie Morales MD [address] [place] [address] [phone] PCP - General Family Medicine 08/08/14 documented as of this encounter
--- OUTSIDE RECORDS SUMMARY | 2025-07-10 12:17 | XMS_ITS | Clinical Summary ---
Author Organization [employer] Address [address] [place] [address] 7 [place] [address] Care Team Providers Care Consumer Lending Manager Name Role Phone Addie Morales MD Primary Care Provider [phone] Allergies No known active allergies Medications ibuprofen 800 MG tablet Take one tablet with food every eight hours x 7 days for vaginal bleeding. 21 tablet 3 Active albuterol 108 (90 Base) MCG/ACT inhaler Inhale 2 puffs every 4 (four) hours if needed for wheezing or shortness of breath. Maximum 8 puffs per day 18 g 3 4 Active nitrofurantoin , macrocrystal-m onohydrate, (Macrobid) 100 MG capsuleIndicat ions:Acute cystitis without hematuria Take 1 capsule (100 mg) by mouth 2 times daily for 5 days. 10 capsule 5 07/04/20 25 Discontinue d(Side effects) sulfamethoxazo le-trimethopri m (Bactrim DS) 800-160 MG tablet Take 1 tablet by mouth 2 times daily for 3 days. 6 tablet 5 07/07/20 25 Active Problems Problem Noted Date Diagnosed Date [...] Encounters Date Type Department Care Team Description 07/10/2025 9:00 AM EDT Office Visit [facility] MEDICINE [address] [place] [address] Addie Morales MD Lower abdominal pain (Primary Dx); Abnormal uterine bleeding (AUB); Nipple discharge; RUQ pain 07/10/[address] [place] [address] Addie Morales MD 07/10/2025 Travel 07/09/[address] [place] [address] Addie Morales MD chart prep 07/09/[address] [address] Addie Morales MD Nurse Triage 07/02/2025 11:15 AM EDT Office [facility] [place] [address] Rashida Chen FNP Vaginal discharge (Primary Dx); Sensation of pressure in bladder area 07/02/2025 Results Follow-Up [address] [place] [address] Rashida Chen FNP Urinalysis w/reflex microscopic, Urinalysis, Complete, with Reflex to Culture, Culture, Urine, Routine 07/02/2025 Results Follow-Up [address] [address] Rashida Chen FNP Bacterial Vaginosis Panel 07/02/2025 Orders Only [address] [address] Rashida Chen FNP 07/02/2025 Travel 06/29/[address] [address] Rashida Chen FNP Chart Prep 06/28/[address] [address] Addie Morales MD Nurse Triage 06/28/[address] [address] Addie Morales MD Appointment Request 06/14/[address] [address] Addie Morales MD appointment from Last 3 [...] 12 07/10/2025 9:07 AM EDT Oxygen Saturation 98% 07/02/2025 11:06 AM EDT Inhaled Oxygen Concentration - - Weight 68.6 kg (151 lb 3.2 oz) 07/10/2025 9:07 A M EDT Height 151.6 cm (4' 11.69 ) 07/10/2025 9:07 AM E DT Body Mass Index 29.84 07/10/2025 9:07 AM EDT Plan of Treatment Upcoming Encounters Date Type Department Care Team (Late st Contact Info) Description 07/25/2025 3:00 PM EDT Procedure Visit [facility] MEDICINE [address] [place] [address] Shandra Davis CNM [address] [place] [address] 08/20/2025 2:00 PM EDT Office Visit [facility] MEDICINE [address] [place] [address] [phone] Addie Morales MD [address] [place] [address] Health Maintenance Due Date Last Done Comments HIV Screening 2000 Pneumococcal Vaccine: Pediatrics (0 to 5 Years) and At-Risk Patients (6 to 49) Years (1 of 1 - PPSV23) 2006 03/17/2001 Family Planning (PISQ) 2015 Hepatitis C Screening 2018 COVID-19 Vaccine ( season) 2025 Influenza Vaccine (#1) 2025 6, 07/17/2014, 08/22/2009 Pap Smear 04/19/2026 04/19/2023 Alcohol/Substance Use Screening 07/10/2026 07/10/2025 Depression Screening 07/10/2026 07/10/2025, 07/10/20 25 Disability Screening 07/10/2026 07/10/2025 SDOH Screening 07/10/2026 07/10/2025 Tobacco Screening 07/10/2026 07/10/2025 DTaP/Tdap/Td Vaccines (8 - Td or Tdap) [...] Procedure Name Priority Date/Time Associated Diagnosis Comments CULTURE, URINE, ROUTINE Routine 07/02/2025 3:08 PM EDT URINALYSIS, COMPLETE, WITH REFLEX TO CULTURE Routine [...] Recently Relevant to Health Maintenance Results * Culture, Urine, Routine (07/02/2025 3:08 PM EDT) Urine Urine specimen obtained by clean catch procedure / Unknown 07/02/2025 3:08 PM EDT 07/02/2025 3:08 PM EDT Comment:UACC Narrative [facility] - 07/03/2025 9:32 AM EDT Urine Culture No growth. Specimen Source: Urine clean catch Rashida Chen [facility] MICROBIOLOGY - GENERAL ORD ERABLES Final Result [facility] [address] [place] [phone] * Bacterial Vaginosis Panel (07/02/2025 11:30 AM EDT) TRICHOMONAS VAGINALIS DETECTION BY PCR NOT DETECTED Not Detect [facility] BACTERIAL VAGINOSIS DETECTION BY PCR NEGATIVE Negative [facility] Comment:The BV organism targ ets [...] DETECTION BY PCR NOT DETECTED Not Detect [facility] Connie glab krusei PCR NOT DETECTED Not Detect [facility] Swab Vaginal structure / Unknown 07/02/2025 11:30 AM EDT 07/02/2025 2:24 PM EDT Rashida [employer]inda [employer] [employer] [facility] MICROBIOLOGY - GENERAL ORD ERABLES Final Result Performing Organization Address [facility]/ZIP Co de Phone Number [facility] [address] [place] [address] [phone] * (ABNORMAL) Urinalysis, Complete, with Reflex to Culture (07/02/2025 11:30 AM EDT) Color Urine Yellow [facility] Appearance Urine Clear [facility] PH 7.5 5.0 - 9.0 [facility] Glucose Urine UA Negative Negative mg/dL [facility] Urine Blood Moderate (2+)(A) Negative [facility] Specific [place] - Urine 1.015 1.005 - 1.025 [facility] Urine Protein Negative Neg-Trace mg/dL [facility] Urine Ketones Negative Negative mg/dL [facility] Nitrite Urine Negative Negative [facility] Leukocyte Esterase Urine Moderate (2+)(A) Negative [facility] RBC Urine 0-2 0 - 2 /HPF [facility] Urine WBC 0-5 0 - 5 /HPF [facility] Urine Squamous Epithelial Cell 0-2 0 - 2 /HPF [facility] Urine Bacteria None Seen None Seen [facility] Hyaline Casts, Urine 0-2 0 - 2 /LPF [facility] 07/02/2025 11:3 0 AM EDT 07/02/2025 2:25 PM EDT Narrative [facility] - 07/02/2025 3:06 PM EDT Urine, Clean Catch Rashida fuseSPORTlinda [facility] URINE ORDERABLES Final Res ult Performing Organization Address [facility]/ZIP Co de Phone Number [facility] [address] [place] [address] [phone] * (ABNORMAL) Urinalysis w/reflex microscopic (07/02/2025 11:30 AM EDT) Color Urine Yellow [facility] Appearance Urine Clear [facility] PH 7.5 5.0 - 9.0 [facility] Glucose Urine UA Negative Negative mg/dL [facility] Urine Blood Moderate (2+)(A) Negative [facility] Specific [place] - Urine 1.015 1.005 - 1.025 [facility] Urine Protein Negative Neg-Trace mg/dL [facility] Urine Ketones Negative Negative mg/dL [facility] Nitrite Urine Negative Negative [facility] Leukocyte Esterase Urine Moderate (2+)(A) Negative [facility] 07/02/2025 11:3 0 AM EDT 07/02/2025 2:25 PM EDT Narrative [facility] - 07/02/2025 2:31 PM EDT Urine, Clean Catch us Rashida Chen [facility] URINE ORDERABLES Final Res ult Performing Organization Address [facility]/ZIP Co de Phone Number [facility] [address] [place] [address] [phone] * Image-Guided Pap with Age-Based Screening??with CT/NG,??Trichomonas (04/19/2023 2:11 PM EDT) Comment [facility] Comment: This order for age-based cervical cancer and STI screening follows ACOG guidelines(PB 168, 140, DEQ372). See individual assays for performing site location. Clinical Information: Routine exam [facility] LMP: NONE GIVEN [facility] Prev. PAP: NONE GIVEN [facility] Prev. BX: NONE GIVEN [facility] SOURCE: None given [facility] Statement Of Adequacy: [facility] Comment: Satisfactory for evaluation. Endocervical/transformation zone component present. Partially obscuring inflammation Interpretation/Re sult: Negative for intraepithelial lesion or malignancy. [facility] [place] [facility] COMMENT: This Pap test has been evaluated with computer assisted technology. [facility] Risk Assessor: Bebo est [employer] [facility] Comment: BK,CT(ASCP) CT screening location: [address] (Always Message) [facility] Comment: EXPLANATORY NOTE: The Pap is a [...] RNA, TMA, Urogenital NOT DETECTED NOT DETECTED [facility] Neisseria gonorrhoeae RNA, TMA, Urogenital NOT DETECTED NOT DETECTED [facility] (Always Message) [employer] [facility] [facility] Comment: The analytical performance characteristics of this assay, when used to test SurePath(TM) specimens have been determined by [employer]. The modifications have not been cleared or approved by the FDA. This assay has been validated pursuant to the CLIA regulations and is used for clinical purposes. For additional information, please refer to [email or web address] [email or web address] (This link is being provided for information/ educational purposes only.) Trichomonas vaginalis, QL, TMA, PAP Vial NOT DETECTED NOT DETECTED [facility] [place] [facility] [facility] [employer] Comment: The analytical performance characteristics of this assay have been determined by [employer]. The modifications have not been cleared or approved by the FDA. This assay has been validated pursuant to the CLIA regulations and is used for clinical purposes. For additional information, please refer to [email or web address] [email or web address] (This link is being provided for information/ educational purposes only.) Pap Vial 04/19/2023 2:11 PM EDT 04/20/2023 5:32 AM EDT Shandra Cristianroula CN LAB CYTOLOGY ORDERABLES F inal Result [facility] [address], [place] [address] [facility] [address] [place] [phone] from Last 3 Months or Most Recently Relevant to Health Maintenance Insurance [facility] Care Teams Consumer Lending Manager Relationship Specialty Start Date End Date Addie Morales MD [address] [place] [phone] PCP - General Family Medicine 08/08/14
--- OUTSIDE RECORDS SUMMARY | 2025-07-10 12:17 | XMS_ITS | Encounter Summary ---
Author Organization [employer] Address [address] [facility] [address], [place] [address] Care Team Providers Care Procurement Cost Coordinator Name Role Phone Addie Morales MD Primary Care Provider [phone] Reason for Visit * Reason Onset Date Comments chart prep 07/09/2025 Encounter Details Date Type Department Care Team ([facility] Contact Info) Description 07/09/2025 Telephone [facility] [address] [place], [place] [phone] Addie Morales MD [address] [place], [place] [phone] chart prep Social History Tobacco Use Types Packs/Day Years [...] encounter Miscellaneous Notes * Telephone Encounter - Evelin Lopez [place] - 07/09/2025 10:37 AM EDT Chart Prep Labs: done Images: not applicable Referrals: not applicable Vaccines due: Covid, Flu, and PCV20 Screenings: HIV screening Overdue care gaps: SBIRT, SDOH, PHQ-9, GAGE-7, Oral health screening, and Disability screen documented in this encounter Plan of Treatment Upcoming Encounters Date Type Department Care Team (Late st Contact Info) Description 07/25/2025 3:00 PM EDT Procedure Visit [facility] MEDICINE [address] [place] [address] Shandra Davis CNM [address] [place] [address] 08/20/2025 2:00 PM EDT Office Visit [facility] MEDICINE [address] [place] [address] Addie Morales MD [address] [place] [address] documented as of this encounter Visit Diagnoses Not on filedocumented in this encounter Additional Health Concerns Assessment Noted Time PHQ-9 Depression Total Score: 0 02/23/20 24 2:19 PM EDT documented as of this encounter Care Teams Procurement Cost Coordinator Relationship Specialty Start Date End Date Addie Moarles MD [address] [place] [address] PCP - General Family Medicine 08/08/14 documented as of this encounter
== END 2025-07-10 09:39 | disposition home or self-care (01) ==
LOC: HO.HHCL 09:38
PROVIDERS: PCP Family Medicine; Visit Provider Family Medicine
DX: N64.52 Nipple discharge (principal)
CPT/HCPCS: 36415; 84146; 84443

== ENCOUNTER 2025-08-07 16:17 | Outpatient (REF) | payer MEDICAID, SELFPAY ==
--- OUTSIDE RECORDS SUMMARY | 2025-08-07 15:00 | XMS_ITS | Encounter Summary ---
Author Organization [employer] [facility] Address [address] [place] [address] Care Team Providers Care Operating Room Orderly Name Role Phone Addie Morales MD Primary Care Provider [phone] Reason for Referral * Imaging (Urgent) - Authorized Specialty Diagnoses / Procedures Referred By Contac t Referred To Contact Radiology Diagnoses Pelvic pain Procedures US Pelvis Transvaginal Amie Torres MD [address] [place] [address] Phone: tel: fax: [facility] [address] [place] [address] Phone: tel: fax: Referral ID Status Reason Start Date Expiration Date V isits Requested Visits Authorized [id number] Authorized 08/07/2025 08/07/2026 1 1 * Imaging (Urgent) - Authorized Specialty Diagnoses / Procedures Referred By Contac t Referred To Contact Radiology Diagnoses Pelvic pain Procedures Us Pelvis complete Amie Torres MD [address] [place] [address] Phone: tel: fax: [facility] [address] [place] [address] Phone: tel: fax: Referral ID Status Reason Start Date Expiration Date V isits Requested Visits Authorized [id number] Authorized 08/07/2025 08/07/2026 1 1 Reason for Visit * Reason Comments Female Dysuria Vaginal Discharge Pt states that she's been having pain in the RLQ. States she's been experiencing dysuria and yellow discharge Encounter Details Date Type Department Care Team (Late st Contact Info) Description 08/07/2025 3:00 PM EDT [facility] [place] [address] Pelvic pain (Primary Dx); Dysuria Social History Tobacco Use Types Packs/Day Years Used Date Smoking Tobacco: Every Day Cigarettes Passive Smoke Exposure: Never Smokeless Tobacco: Never Alcohol Use Standard Drinks/Week Comments Yes 0 (1 standard drink = 0.6 oz pur e alcohol) Depression Answer Date Recorded Patient Health Questionnaire-9 Score 18 07/25/2025 Patient Health Questionnaire-9 Score 18 07/25/2025 Last PHQ-9: Questionnaire Data Not on file 1 Housing Stability Answer Date Recorded What is [...] Date Recorded Patient Health Questionnaire-2 Score 2 07/25/2025 Internet Access Answer Date Recorded Internet Access [...] Sign Reading Time Taken Comments Blood Pressure 116/69 08/07/2025 3:16 PM EDT Pulse 111 08/07/2025 3:16 PM EDT Temperature 37.1 C (98.7 F) 08/07/2025 3:16 PM EDT Respiratory Rate 16 08/07/2025 3:16 PM EDT Oxygen Saturation 100% 08/07/2025 3:16 PM EDT Inhaled Oxygen Concentration - - Weight 69.3 kg (152 lb 12.8 oz) 08/07/2025 3:16 PM EDT Height 152.4 cm (5') 08/07/2025 3:16 PM EDT Body Mass Index 29.84 08/07/2025 3:16 PM EDT documented in this encounter Plan of Treatment Upcoming Encounters Date Type Department Care Team (Late st Contact Info) Description 08/20/2025 2:00 PM EDT Office Visit [facility] MEDICINE [address] [place] [address] Addie Morlaes MD [address] [place] [address] Scheduled Orders Name Type Priority Associated Diagnoses Orde r Schedule CBC auto differential Lab Routine Pelvic pain Expected: 08/07/2025 (Approximate), Expires: 08/07/2026 Sed Rate by Modified [place] Lab Routine Pelvic pain Expected: 08/07/2025 (Approximate), Expires: 08/07/2026 Chlamydia/Trichomonas/Ne isseria gonorrhoeae, PCR, Urine Lab Routine Pelvic pain Expected: 08/07/2025 (Approximate), Expires: 08/07/2026 Bacterial Vaginosis Microbiology Routine Pelvic pain Expected: 08/07/2025 (Approximate), Expires: 08/07/2026 Hepatic Function Panel Lab Routine Pelvic pain Expected: 08/07/2025 (Approximate), Expires: 08/07/2026 Us Pelvis complete Imaging Urgent Pelvic pain Expected: 08/07/2025 (Approximate), Expires: 08/07/2026 US Pelvis Transvaginal Imaging Urgent Pelvic pain Expected: 08/07/2025 (Approximate), Expires: 08/07/2026 Comprehensive Metabolic Panel Lab Routine Pelvic pain Expected: 08/07/2025 (Approximate), Expires: 08/07/2026 documented as of this encounter Procedures Procedure Name Priority Date/Time Associated Diagnosis Comments POCT URINALYSIS DIPSTICK Routine 08/07/2025 3:34 PM EDT Dysuria documented in this encounter Results * (ABNORMAL) POCT Urinalysis (08/07/2025 3:34 PM EDT) Color, UA Yellow Clarity, UA Clear Glucose, UA Negative Bilirubin, UA Trace Ketones, UA Positive Comment:15 mg/dL Spec Grav, UA 1.025 Blood, UA Positive(A) Negative, None Detected Comment:small pH, UA 6.0 Protein, UA Negative Urobilinogen, UA 1.0 Leukocytes, UA Negative Negative, Rare, Trace Nitrite, UA Negative Negative, None Detected Appearance, UA yellow QC Media Lot # [id number] Lot# Expiration Date Urine (Urine, Random) 08/07/2025 3:34 PM EDT Amie Torres MD POINT OF CARE TEST ENTER /EDIT ORDERABLES Final Result documented in this encounter Visit Diagnoses Diagnosis Pelvic pain- Primary Dysuria documented in this encounter Additional Health Concerns Assessment Noted Time PHQ-9 Depression Total Score: 18 025 7:54 AM EDT documented as of this encounter Care Teams Operating Room Orderly Relationship Specialty Start Date End Date Addie Morales MD [address] [place] [phone] PCP - General Family Medicine 08/08/14 documented as of this encounter
[2025-08-07 18:13] LABS: MANUAL DIFF FLAG NO
--- OUTSIDE RECORDS SUMMARY | 2025-08-07 18:38 | XMS_ITS | Encounter Summary ---
Author Organization [employer] Address [address] [facility] [address] [place] [address] Care Team Providers Care Store Receiver Name Role Phone Addie Morales MD Primary Care Provider [phone] Reason for Visit * Reason Onset Date Comments Nurse Triage 06/28/2025 Encounter Details Date Type Department Care Team ([facility] st Contact Info) Description 06/28/2025 Telephone [facility] MEDICINE [address] [place], [place] [phone] Addie Morales MD [address] [place], [place] [phone] Nurse Triage Social History Tobacco Use Types [...] to Candido Patel to triage below at [phone]. Reports used boric acid last night. Pt [...] caller accepted this outcome. Contact pt at [phone] documented in this encounter Plan of Treatment Upcoming Encounters Date Type Department Care Team (Late st Contact Info) Description 08/20/2025 2:00 PM EDT Office Visit [facility] MEDICINE [address] [place] [phone] Addie Morales MD [address] [place], [place] [phone] documented as of this encounter Visit Diagnoses Not on filedocumented in this encounter Additional Health Concerns Assessment Noted Time PHQ-9 Depression Total Score: 0 02/23/20 24 2:19 PM EDT documented as of this encounter Care Teams Store Receiver Relationship Specialty Start Date End Date Addie Morales MD [address] [place] [address] [phone] PCP - General Family Medicine 08/08/14 documented as of this encounter
--- OUTSIDE RECORDS SUMMARY | 2025-08-07 18:38 | XMS_ITS | Encounter Summary ---
Author Organization [employer] Address [address] [facility] 7t [place] [address] Care Team Providers Care Minor League Baseball Player Name Role Phone Addie Morales MD Primary Care Provider [phone] Encounter Details Date Type Department Care Team (Latest Contact Info) Description 08/07/2025 Travel Social History Tobacco Use Types Packs/Day [...] your housing situation today? I have christian mckenize 07/10/[address] you li [...] Description 08/20/2025 2:00 PM EDT Office Visit [facility] MEDICINE [address] [place] [address] Addie Morales MD [address] [place] [phone] documented as of this encounter Visit Diagnoses Not on filedocumented in this encounter Additional Health Concerns Assessment Noted Time PHQ-9 Depression Total Score: 18 025 7:54 AM EDT documented as of this encounter Care Teams Minor League Baseball Player Relationship Specialty Start Date End Date Addie Morales MD [address] [place] [phone] PCP - General Family Medicine 08/08/14 documented as of this encounter
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
--- OUTSIDE RECORDS SUMMARY | 2025-08-07 18:38 | XMS_ITS | Encounter Summary ---
Author Organization [employer] [facility] Address [address] [facility] 7 [place] [address] Care Team Providers Care Counselor Dormitory Name Role Phone Addie Morales MD Primary Care Provider [phone] Encounter Details Date Type Department Care Team ([facility] st Contact Info) Description 07/02/2025 Results Follow-Up [facility] [address] [place] [address] Rashida Chen FNP [address] [place] [address] Bacterial Vaginosis Panel Social History Tobacco Use [...] Description 08/20/2025 2:00 PM EDT Office Visit [facility] [address] [place] [address] Addie Morales MD [address] [place] [address] documented as of this encounter Visit Diagnoses Not on filedocumented in this encounter Additional Health Concerns Assessment Noted Time PHQ-9 Depression Total Score: 0 02/23/20 24 2:19 PM EDT documented as of this encounter Care Teams Counselor Dormitory Relationship Specialty Start Date End Date Addie Morales MD [address] [place] [phone] PCP - General Family Medicine 08/08/14 documented as of this encounter
[2025-08-07 18:41] LABS: Alanine Aminotransferase 37 U/L (0-31); Albumin Level 4.7 g/dL (3.5-5.0); Alkaline Phosphatase 79 U/L (39-117); Anion Gap 15 (12-20); Aspartate Amino Transferase 25 U/L (5-31); Blood Urea Nitrogen 9 mg/dL (9-16); Calcium 9.5 mg/dL (8.4-10.2); Carbon Dioxide 28 mmol/L (22-29); Chloride 104 mmol/L (96-108); Estimated Glomerular Filt Rate > 60; Potassium 3.7 mmol/L (3.3-5.1); Sodium 143 mmol/L (135-145); Total Protein 7.5 g/dL (6.5-8.0)
[2025-08-07 20:14] LABS: Hematocrit 39.1 % (37.0-47.0); Hemoglobin 13.0 g/dl (12.0-16.0); Imm Gran Abs Auto 0.06 X10*3/uL (0.00-0.03); Imm Gran Pct Auto 0.5 % (0.0-0.4); Lymphocytes Absolute Auto 2.2 X10*3/uL (1.2-4.9); Mean Corpuscular HGB Conc 33.2 g/dl (31.0-35.0); Mean Corpuscular Hemoglobin 30.0 pg (27.0-33.0); Mean Corpuscular Volume 90.1 fL (80.0-98.0); NRBC Abs Auto 0.000 X10*3/uL (0.0-0.012); NRBC Pct Auto 0.0 /100WBC (0.0-0.2); Platelet Count 268 X10*3/uL (160-400); Red Blood Count 4.34 X10*6/uL (4.20-5.50); White Blood Count 13.3 X10*3/uL (4.8-10.8)
[2025-08-08 12:35] LABS: Bacterial Vaginosis PCR NEGATIVE (Negative); Candida Group PCR NOT DETECTED (Not Detect); Candida glab krusei PCR NOT DETECTED (Not Detect); Trichomonas vaginalis PCR NOT DETECTED (Not Detect)
[2025-08-08 12:57] LABS: CT PCR Urine NOT DETECTED (Not Detect.); NG PCR Urine NOT DETECTED (Not Detect.)
== END 2025-08-07 16:18 | disposition home or self-care (01) ==
LOC: HO.HHCL 16:17
PROVIDERS: Internal Medicine; PCP Family Medicine; Visit Provider Internal Medicine
DX: Z11.3 Encounter for screening for infections with a predominantly sexual mode of transmission (principal); Z11.8 Encounter for screening for other infectious and parasitic diseases; R10.20 Pelvic and perineal pain unspecified side
CPT/HCPCS: 36415; 80053; 81515; 82248; 85025; 85652; 87491; 87591

== ENCOUNTER 2025-08-20 17:58 | Outpatient (REF) | payer MEDICAID, SELFPAY ==
--- OUTSIDE RECORDS SUMMARY | 2025-08-20 14:00 | XMS_ITS | Encounter Summary ---
Author Organization [employer] [facility] Address [address] [facility] 7 [place] [address] Care Team Providers Care Land Leasing Examiner Name Role Phone Addie Morales MD Primary Care Provider [phone] Encounter Details Date Type Department Care Team ([facility] st Contact Info) Description 08/20/2025 2:00 PM EDT Office Visit [facility] [address] [place], [place] [phone] Addie Moralse MD [address] [place], [place] [phone] Vaginal discharge (Primary Dx); Encounter for immunization; Gonorrhea Social History Tobacco Use Types Packs/Day Years Used Date Smoking Tobacco: Never Passive Smoke Exposure: Never Smokeless Tobacco: Never Tobacco Cessation:Counseling Given: Not Answered Alcohol Use Standard Drinks/Week [...] Sign Reading Time Taken Comments Blood Pressure 126/70 08/20/2025 1:57 PM EDT Pulse 76 08/20/2025 1:57 PM EDT Temperature 36 C (96.8 F) 08/20/2025 1:57 PM EDT Respiratory Rate 16 08/20/2025 1:57 PM EDT Oxygen Saturation - - Inhaled Oxygen Concentration - - Weight 70.8 kg (156 lb) 08/20/2025 1:57 PM EDT Height 150.2 cm (4' 11.12 ) 08/20/2025 1:57 PM E DT Body Mass Index 31.38 08/20/2025 1:57 PM EDT documented in this encounter Plan of Treatment Scheduled Orders Name Type Priority Associated Diagnoses Orde r Schedule Neisseria gonorrhoeae Culture with Reflex to Susceptibility Microbiology Routine Vaginal discharge Gonorrhea Expected: 08/20/2025 (Approximate), Expires: 08/20/2026 Bacterial Vaginosis, Yeast and Trich Microbiology Routine Vaginal discharge Expected: 08/20/2025 (Approximate), Expires: 08/20/2026 documented as of this encounter Visit Diagnoses Diagnosis Vaginal discharge- Primary Leukorrhea, not specified as infective Encounter for immunization Gonorrhea Gonococcal infection (acute) of lower genitourinary tract documented in this encounter Additional Health Concerns Assessment Noted Time PHQ-9 Depression Total Score: 18 025 7:54 AM EDT documented as of this encounter Care Teams Land Leasing Examiner Relationship Specialty Start Date End Date Addie Morales MD [address] [place] [address] PCP - General Family Medicine 08/08/14 documented as of this encounter
--- OUTSIDE RECORDS SUMMARY | 2025-08-20 19:29 | XMS_ITS | Encounter Summary ---
Author Organization [employer] Address [address] [facility] [address] [place] [address] Care Team Providers Care Blankbook Forwarder Name Role Phone Addie Morales MD Primary Care Provider [phone] Encounter Details Date Type Department Care Team (Latest Contact Info) Description 08/20/2025 Travel Social History Tobacco Use Types Packs/Day [...] as of this encounter Plan of Treatment Not on file documented as of this encounter Visit Diagnoses Not on filedocumented in this encounter Additional Health Concerns Assessment Noted Time PHQ-9 Depression Total Score: 18 025 7:54 AM EDT documented as of this encounter Care Teams Blankbook Forwarder Relationship Specialty Start Date End Date Addie Morales MD [address] [place] [address] PCP - General Family Medicine 08/08/14 documented as of this encounter
--- OUTSIDE RECORDS SUMMARY | 2025-08-20 19:29 | XMS_ITS | Encounter Summary ---
Author Organization [employer] Address [address] [facility] [address] [place] [address] Care Team Providers Care Slitting Machine Feeder Name Role Phone Addie Morales MD Primary Care Provider [phone] Reason for Visit * Reason Onset Date Comments Nurse Triage 06/28/2025 Encounter Details Date Type Department Care Team ([facility] st Contact Info) Description 06/28/2025 Telephone [facility] MED[facility] [address], [place] [phone] Addie Morales MD [address] [place], [place] [phone] Nurse Triage Social History Tobacco Use Types [...] to Candido Patel to triage below at [phone]. Reports used boric acid last night. Pt [...] caller accepted this outcome. Contact pt at [phone] documented in this encounter Plan of Treatment Not on file documented as of this encounter Visit Diagnoses Not on filedocumented in this encounter Additional Health Concerns Assessment Noted Time PHQ-9 Depression Total Score: 0 02/23/20 24 2:19 PM EDT documented as of this encounter Care Teams Slitting Machine Feeder Relationship Specialty Start Date End Date Addie Morales MD [address] [place] [id number] PCP - General Family Medicine 08/08/14 documented as of this encounter
--- OUTSIDE RECORDS SUMMARY | 2025-08-20 19:29 | XMS_ITS | Encounter Summary ---
Author Organization [employer] Address [address] [facility] [address] [place] [address] Care Team Providers Care Digital Music Instructor Name Role Phone Addie Morales MD Primary Care Provider [phone] Reason for Visit * Reason Onset Date Comments chart prep 08/17/2025 Encounter Details Date Type Department Care Team ([facility] Contact Info) Description 08/17/2025 Telephone [facility] [address] [place], [place] [phone] Addie Morales MD [address] [place], [place] [phone] chart prep Social History Tobacco Use Types [...] encounter Miscellaneous Notes * Telephone Encounter - Tab Yañez [place] - 08/17/2025 2:54 PM EDT Chart Prep Labs: done Images: no show pelvis US 08/11/25 12pm [facility] Referrals: not applicable Vaccines due: Flu Screenings: LMP Overdue care gaps: Not applicable documented in this encounter Plan of Treatment Not on file documented as of this encounter Visit Diagnoses Not on filedocumented in this encounter Additional Health Concerns Assessment Noted Time PHQ-9 Depression Total Score: 18 025 7:54 AM EDT documented as of this encounter Care Teams Digital Music Instructor Relationship Specialty Start Date End Date Addie Morales MD [address] [place] [address] PCP - General Family Medicine 08/08/14 documented as of this encounter
--- OUTSIDE RECORDS SUMMARY | 2025-08-20 19:29 | XMS_ITS | Encounter Summary ---
Author Organization [employer] Address [address] [facility] [address] [place] [address] Care Team Providers Care Glass Rolling Machine Operator Name Role Phone Addie Morales MD Primary Care Provider [phone] Encounter Details Date Type Department Care Team ([facility] st Contact Info) Description 07/02/2025 Results Follow-Up [facility] MEDICINE [address] [place] [address] Rashida Chen FNP [address] [place] [address] Bacterial Vaginosis Panel Social History Tobacco Use [...] documented as of this encounter Care Teams Glass Rolling Machine Operator Relationship Specialty Start Date End Date Addie Morales MD [address] [place] [id number] PCP - General Family Medicine 08/08/14 documented as of this encounter
--- OUTSIDE RECORDS SUMMARY | 2025-08-20 19:29 | XMS_ITS | Clinical Summary ---
Author Organization [employer] Address [address] [facility] [address] [place] [address] Care Team Providers Care Dedicated Regional Driver Name Role Phone Addie Morales MD Primary Care Provider [phone] Allergies Active Allergy Reactions Criticality Noted Date [...] pain. 60 tablet 5 09/06/20 25 Active Hospital, Clinic, or Other Facility Administered Medication Ordered Dose Route Frequency Start Date End Date Status azithromycin (Zithromax) powder 2 gIndications:Gonorrhe a 2 g PO Once 08/10/2025 08/10/2025 Discontinued cefTRIAXone (Rocephin) vial 0.5 gIndications:Gonorrhe a 0.5 g IM Once 08/10/2025 08/10/2025 Ended azithromycin (Zithromax) tablet 2,000 mgIndications:Gonorrh ea 2000 mg PO Once 08/10/2025 08/10/2025 Ended lidocaine (Xylocaine) 2 % injection 20 mgIndications:Gonorrh ea 20 mg IJ Once 08/10/2025 08/10/2025 Discontinued lidocaine (Xylocaine) 1 % injection 10 mgIndications:Gonorrh ea 10 mg IJ Once 08/10/2025 08/10/2025 Discontinued lidocaine (Xylocaine) 1 % injection 20 mgIndications:Gonorrh ea 20 mg IJ Once 08/10/2025 08/10/2025 Ended Active Problems Problem Noted Date Diagnosed Date Pelvic pain 08/07/2025 Assessment & Plan (08/08/2025 5:11 PM EDT): It is not clear if it is related to POP complication versus recurrent ovarian cyst versus recurrent PID as she will partner has not been treated. I advised them to follow-up with partners PCP as hospital records do not show evidence of any STI to be treated on him, she was rather treated on clinical grounds of cervicitis. Order labs including STI testing and pelvic ultrasound, follow-up with new PCP. Take Tylenol as needed for pain, go immediately to ED if she develops significant fever, worsening abdominal pain, vaginal discharge or bleeding, nausea or change in mental status. She will continue to be off work, avoid intercourse Major depressive disorder 08/02/2025 Assessment & Plan [...] 9:49 AM EDT): - Reviewed lab in [facility] on 07/21/2025. AST 41 and ALT 110. - Abdominal CT on 07/21/2025 did not show abnormality in right upper quadrant - Will repeat lab and if it is still elevated, will order US and refer to GI Assessment & Plan (07/10/2025 1:30 PM EDT): - Reviewed lab in [facility] on 07/08/25. Normal hepatic profile. - will evaluate with CT scan of abdomen for both RUQ and lower abdomen. Lower abdominal pain 07/10/2025 Assessment & Plan (08/02/2025 9:46 AM EDT): - Evaluated in [facility] ED several times in Jun 2025. [...] (07/10/2025 1:35 PM EDT): - Evaluated in [facility] ED. - US result: No evidence [...] organization. Date Type Department Care Team Description 08/20/2025 2:00 PM EDT Office Visit [facility] [address] [place] [phone] Addie Morales MD Vaginal discharge (Primary Dx); Encounter for immunization; Gonorrhea 08/20/2025 Travel 08/17/2025 Telephone [facility] [address] [place] [phone] Addie Morales MD chart prep 08/13/2025 Travel 08/13/2025 Patient Outreach [address] [address] Addie Morales MD Pre-visit Planning ([facility] screening completed on 07/10/25) 08/10/2025 10:40 AM EDT Office Visit [facility] [address] [place] [phone] Nalini Larios MD Gonorrhea (Primary Dx); Panic attack as reaction to stress 08/10/[address] [address] Addie Morales MD 08/10/[address] [address] Addie Morales MD Status Check 08/10/2025 Travel 08/09/[address] [address] Addie Morales MD Transition Of Care (Tcm) 08/07/2025 3:00 PM EDT Office Visit [facility] [address] [place] [address] [phone] Amie Torres MD Pelvic pain (Primary Dx); Dysuria 08/07/2025 Travel 07/25/2025 3:00 PM EDT Procedure Visit [address] [address] Shandra Davis CNM PID (acute pelvic inflammatory disease) (Primary Dx) 07/25/2025 Travel 07/25/2025 [facility] Health Information Management [address] [place] [phone] ABD/PELVIS ORDER 07/24/2025 3:00 PM EDT Office Visit [address] [address] Addie Morales MD Lower abdominal pain (Primary Dx); Acute appendicitis, unspecified acute appendicitis type; Status post appendectomy; RUQ pain; Posttraumatic stress disorder; GAGE (generalized anxiety disorder); Severe episode of recurrent major depressive disorder, without psychotic features (CMS/HCC) 07/24/2025 Travel 07/24/2025 Telephone [facility] [address] [place] [address] [phone] Kandy Collins MA 07/23/[address] [phone] Carlee Gudino, MILITARY TECHNICIAN Follow-up 07/23/[address] [phone] Addie Morales MD chart prep 07/17/2025 Patient Outreach [facility] [address] Addie Morales MD Transition Of Care (Tcm) (HDF- Unscheduled- message sent to team nurses ) 07/13/2025 Telephone [facility] [place] [address] Addie Morales MD 07/10/2025 9:00 AM EDT Office Visit [address] [place] [address] Addie Morales MD Lower abdominal pain (Primary Dx); Abnormal uterine bleeding (AUB); Nipple discharge; RUQ pain; Dietary counseling; Exercise counseling; Overweight; Posttraumatic stress disorder; Mixed anxiety and depressive disorder 07/10/20[address] [place] [address] Addie Morales MD 07/10/2025 Travel 07/09/[address] [place] [address] Addie Morales MD chart prep 07/09/2025 [address] [place] [address] Addie Morales MD Nurse Triage 07/02/2025 11:15 AM EDT Office Visit [facility] [place] [address] Rashida Chen FNP Vaginal discharge (Primary Dx); Sensation of pressure in bladder area 07/02/2025 Results Follow-[place] [address] [place] [address] Rashida Chen FNP Urinalysis w/reflex microscopic, Urinalysis, Complete, with Reflex to Culture, Culture, Urine, Routine, Additional followed-up results: 2 07/02/2025 Results Follow-Up [facility] [place] [address] Rashida Chen FNP Bacterial Vaginosis Panel 07/02/2025 Orders Only [address] [place] [address] Rashida Chen FNP 07/02/2025 Travel 06/29/2025 Telephone [facility] [address] [place] [address] Rashida Chen FNP Chart Prep 06/28/2025 Telephone [facility] [address] [place] [address] Addie Morales MD Nurse Triage 06/28/2025 Telephone [facility] [address] [place] [address] Addie Morales MD Appointment Request 06/14/2025 Telephone [facility] [address] [place] [address] Addie Morales MD appointment from Last 3 Months Immunizations Immunization Administration Dates Next Due DTaP 12/19/2004, 1,01/20/2001,11/17 HPV 9-Valent 08/17/2016 HPV, Quadrivalent 07/17/2014,10/15/2011 Hep A, ped/adol, 2 dose 07/17/2014,10/15/2011 Hep B, Adolescent or Pediatric 04/08/2001,2000,2000 Hib (PRP-T) 12/23/2001, 1,03/17/2001,11/17 IPV 12/19/2004, 1,01/20/2001,11/17 Influenza injectable quadriv alent preservative free 08/17/2016,07/17/2014,08/22/2009 Influenza, seasonal, injecta ble, preservative free 08/20/2025 MMR 10/06/2002,09/21/2001 Meningococcal MCV4P [id number] 10/08/2016,10/15/20 11 [...] 16 08/20/2025 1:57 PM EDT Oxygen Saturation 100% 08/07/2025 3:16 PM EDT Inhaled Oxygen Concentration - - Weight 70.8 kg (156 lb) 08/20/2025 1:57 PM EDT Height 150.2 cm (4' 11.12 ) 08/20/2025 1:57 PM E DT Body Mass Index 31.38 08/20/2025 1:57 PM EDT Plan of Treatment Health Maintenance Due Date Last Done Comments HIV Screening 2000 Pneumococcal Vaccine: Pediatrics (0 to 5 Years) and At-Risk Patients (6 to 49) Years (1 of 1 - PPSV23) 2006 03/17/2001 Hepatitis C Screening 2018 COVID-19 Vaccine ( - season) 2025 Depression Monitoring 01/23/2026 07/25/2025, 025 Pap Smear 04/19/2026 04/19/2023 Alcohol/Substance Use Screening 07/10/2026 07/10/2025 SDOH Screening 07/10/2026 07/10/2025 Family Planning (PISQ) 07/25/2026 07/25/2025 Disability Screening 08/13/2026 08/13/2025 Tobacco Screening 08/20/2026 08/20/2025 DTaP/Tdap/Td Vaccines (8 - Td or Tdap) [...] 06/26, 10/15/2011 Meningococcal Vaccine Completed 10/08/2016, 011 Influenza Vaccine Completed 08/20/2025, , 07/17/2014, Additional history exists Meningococcal B Vaccine Aged Out No l onger eligible based on patient's age to complete this topic RSV under 20 months Aged Out No longe r eligible based on patient's age to complete this topic Rotavirus Vaccines Aged Out No longer eligible based on patient's age to complete this topic Procedures Procedure Name Priority Date/Time Associated Diagnosis Comments CHLAMYDIA/TRICHOMONAS/ NEISSERIA GONORRHOEAE, PCR, URINE Routine 08/08/2025 3:46 PM EDT COMPREHENSIVE METABOLIC PANEL Routine 08/07/2025 4:20 PM EDT Pelvic pain HEPATIC FUNCTION PANEL Routine 4:20 PM EDT Pelvic pain SED RATE BY MODIFIED WESTERGREN Routine 08/07/2025 4:20 PM EDT Pelvic pain CBC WITH AUTO DIFFERENTIAL Routine 08/07/2025 4:20 PM EDT Pelvic pain BACTERIAL VAGINOSIS PANEL Routine 08/07/2025 3:46 PM EDT POCT URINALYSIS DIPSTICK Routine 08/07/2025 3:34 PM [...] Recently Relevant to Health Maintenance Results * Chlamydia/Trichomonas/Neisseria gonorrhoeae, PCR, Urine (08/08/2025 3:46 PM EDT) CT PCR, Urine NOT DETECTED Not Detect. [facility] Comment:A not detected test result does not exclude the possibilityof infection because test results can be affected byimproper specimen collection, concurrent antibiotic therapy,or the number of organisms in the specimen which may bebelow the sensitivity of the test. As with many diagnostictests, results from the Xpert CT/NG assay should beinterpreted in conjunction with other laboratory andclinical data available to the clinician.The Xpert CT/NG assay should not be used for the evaluationof suspected sexual abuse or for other medico-legalindications. Additional testing is recommended in anycircumstance when false positive or false negative resultscould lead to adverse medical, social or psychologicalconsequences. NG PCR, Urine NOT DETECTED Not Detect. [facility] Comment:A not detected test result does not exclude the possibilityof infection because test results can be affected byimproper specimen collection, concurrent antibiotic therapy,or the number of organisms in the specimen which may bebelow the sensitivity of the test. As with many diagnostictests, results from the Xpert CT/NG assay should beinterpreted in conjunction with other laboratory andclinical data available to the clinician.The Xpert CT/NG assay should not be used for the evaluationof suspected sexual abuse or for other medico-legalindications. Additional testing is recommended in anycircumstance when false positive or false negative resultscould lead to adverse medical, social or psychologicalconsequences. 08/08/2025 3:46 PM EDT 08/08/2025 3:46 PM EDT Amie Torres MD LAB URINE ORDERABLES Trevor al Result [facility] [address] [place] [address] [phone] * (ABNORMAL) CBC auto differential (08/07/2025 4:20 PM EDT) White Blood Count 13.3(H) 4.8 - 10.8 X10*3/uL [facility] Red Blood Count 4.34 4.20 - 5.50 X10*6/uL [facility] Hemoglobin 13.0 12.0 - 16.0 g/dl [facility] Hematocrit 39.1 37.0 - 47.0 % [facility] Mean Corpuscular Volume 90.1 80.0 - 98.0 fL [facility] Mean Corpuscular Hemoglobin 30.0 27.0 - 33.0 pg [facility] Mean Corpuscular HGB Conc 33.2 31.0 - 35.0 g/dl [facility] Red Cell Distribution Width 12.7 11.0 - 16.0 % [facility] Platelet Count 268 160 - 400 X10*3/uL [facility] Mean Platelet Volume 11.2 9.4 - 12.3 fL [facility] Neutrophils Percent Auto 71.7 45 - 73 % [facility] Imm Gran Pct Auto 0.5(H) 0.0 - 0.4 % [facility] Lymphocytes Percent Auto 16.3(L) 20 - 40 % [facility] Monocytes Percent Auto 8.4 2 - 11 % [facility] Eosinophils Percent Auto 2.6 0 - 4 % [facility] Basophils Percent Auto 0.5 0 - 2 % [facility] NRBC Pct Auto 0.0 0.0 - 0.2 /100WBC [facility] Neutrophils Absolute Auto 9.5(H) 2.0 - 8.3 x10*3/uL [facility] Imm Gran Abs Auto 0.06(H) 0.00 - 0.03 X10*3/uL [facility] Lymphocytes Absolute Auto 2.2 1.2 - 4.9 X10*3/uL [facility] Monocytes Absolute Auto 1.1 0.1 - 1.2 X10*3/uL [facility] Eosinophils Absolute Auto 0.4 0.0 - 0.4 X10*3/uL [facility] Basophils Absolute Auto 0.1 0.0 - 0.2 X10*3/uL [facility] NRBC Abs Auto 0.000 0.0 - 0.012 X10*3/uL [facility] Blood Venous blood specimen / Unknown 08/07/2025 4:20 PM EDT 08/07/2025 6:11 PM EDT Amie Torres MD LAB BLOOD ORDERABLES Fin al Result Performing Organization Address City/[facility] Co de Phone Number [facility] [address] [place] [phone] * Sed Rate by Modified Westergren (08/07/2025 4:20 PM EDT) Pathologist [facility] Erythrocyte Sedimentation Rate 16 0 - 20 MM/HR [facility] Comment:Patients with polycy themia and many hemoglobin abnormalitiesmay have depressed sed rates whereas patients with anemiamay have elevated sed rates. Blood Venous blood specimen / Unknown 08/07/2025 4:20 PM EDT 08/07/2025 6:11 PM EDT Amie Torres MD LAB BLOOD ORDERABLES Fin al Result Performing Organization Address City/[facility] Co de Phone Number [facility] [address] [place] [phone] * Hepatic Function Panel (08/07/2025 4:20 PM EDT) Bilirubin, Direct 0.2 0.0 - 0.5 mg/dL [facility] Blood Venous blood specimen / Unknown 08/07/2025 4:20 PM EDT 08/07/2025 6:11 PM EDT us Amie Torres MD LAB BLOOD ORDERABLES Fin al Result [facility] [address] [place] [address] [phone] * (ABNORMAL) Comprehensive Metabolic Panel (08/07/2025 4:20 PM EDT) Sodium 143 135 - 145 mmol/L [facility] Potassium 3.7 3.3 - 5.1 mmol/L [facility] Chloride 104 96 - 108 mmol/L [facility] Carbon Dioxide 28 22 - 29 mmol/L [facility] Anion Gap 15 12 - 20 [facility] Urea Nitrogen (BUN) 9 9 - 16 mg/dL [facility] Creatinine, Serum 0.65 0.5 - 1.4 mg/dL [facility] Estimated Glomerular Filt Rate >60 [facility] Comment:Chronic Kidney Disea se: Estimated GFR < 60 mL/min/[id number] Kidney Disease: Estimated GFR < 15 mL/min/1.73m2 Glucose 95 60 - 115 mg/dL [facility] Calcium 9.5 8.4 - 10.2 mg/dL [facility] Bilirubin, Total 0.5 0.0 - 1.0 mg/dL [facility] Aspartate Amino Transferase 25 5 - 31 U/L [facility] Alanine Aminotransferase 37(H) 0 - 31 U/L [facility] Total Protein 7.5 6.5 - 8.0 g/dL [facility] Albumin Level 4.7 3.5 - 5.0 g/dL [facility] Alkaline Phosphatase 79 39 - 117 U/L [facility] Blood Venous blood specimen / Unknown 08/07/2025 4:20 PM EDT 08/07/2025 6:11 PM EDT Amie Torres MD LAB BLOOD ORDERABLES Fin al Result Performing Organization Address [facility] de Phone Number [facility] [address] [place] [phone] * Bacterial Vaginosis (08/07/2025 3:46 PM EDT) Only the most recent of2 resultswithin the time period is included. TRICHOMONAS VAGINALIS DETECTION BY PCR NOT DETECTED Not Detect [facility] BACTERIAL VAGINOSIS DETECTION BY PCR NEGATIVE Negative [facility] Comment:The BV organism targ ets [...] DETECTION BY PCR NOT DETECTED Not Detect [facility] Connie glab krusei PCR NOT DETECTED Not Detect [facility] 08/07/2025 3:46 PM EDT 08/08/2025 11:11 AM EDT Amie Torres MD LAB MICROBIOLOGY - GENER AL ORDERABLES Final Result Performing Organization Address [facility] de Phone Number [facility] [address] [place] [phone] * (ABNORMAL) POCT Urinalysis (08/07/2025 3:34 PM [...] Modality Body, Pelvis, Abdomen Computed T omography Addie Morales MD IMG CT PROCEDURES Final Result * Prolactin, Dilution Study (07/10/2025 9:54 AM EDT) Prolactin, Undiluted 13.3 ng/mL [facility] Prolactin, Diluted SEE NOTE ng/mL [facility] Comment:Result confirmed by 1:100 dilution. No high dosehook effect detected. Reference Range Females Non- 3.0-30.0 10.0-209.0 Postmenopausal 2.0-20.0Prolactin dilution studies are done to determine ifthere is a high-dose hook effect (i.e. a non-linearassay response due to a very high concentration ofProlactin). This is reported to occur at Prolactinconcentrations at or above 30,000 ng/mL.This test is not recommended for identifyingmacroprolactin. [facility], Prolactin, Total and Monomeric is therecommended test (Order code [id number]).THIS TEST WAS PERFORMED AT:[facility] [address] [phone] SANTOS MD Blood Venous blood specimen / Unknown 07/10/2025 9:54 AM EDT 07/10/2025 11:14 AM EDT Addie Morales MD LAB BLOOD ORDERABLES Final Resul t [facility] [address] [place] [phone] [phone] * TSH with Reflex to Free T4 (07/10/2025 9:54 AM EDT) TSH reflex Free T4 1.13 0.32 - 4.0 uIU/mL [facility] Blood 07/10/2025 9:54 AM EDT 07/10/2025 11:20 AM EDT us Addie Morales MD LAB BLOOD ORDERABLES Final Resul t Performing Organization Address City/[facility]/ZIP Co de Phone Number [facility] [address] [place] [phone] * Culture, Urine, Routine (07/02/2025 3:08 PM EDT) Urine Urine specimen obtained by clean catch procedure / Unknown 07/02/2025 3:08 PM EDT 07/02/2025 3:08 PM EDT Comment:UACC Narrative [facility] - 07/03/2025 9:32 AM EDT Urine Culture No growth. Specimen Source: Urine clean catch us Rashida MOORE LAB MICROBIOLOGY - GENERAL ORD ERABLES Final Result Performing Organization Address [facility] Co de Phone Number [facility] [address] [place] [phone] * (ABNORMAL) Urinalysis, Complete, with Reflex to Culture (07/02/2025 11:30 AM EDT) Color Urine Yellow [facility] Appearance Urine Clear [facility] PH 7.5 5.0 - 9.0 [facility] Glucose Urine UA Negative Negative mg/dL [facility] Urine Blood Moderate (2+)(A) Negative [facility] Specific Basalt - Urine 1.015 1.005 - 1.025 [facility] Urine Protein Negative Neg-Trace mg/dL [facility] Urine Ketones Negative Negative mg/dL [facility] Nitrite Urine Negative Negative [facility] Leukocyte Esterase Urine Moderate (2+)(A) Negative [facility] RBC Urine 0-2 0 - 2 /HPF [facility] Urine WBC 0-5 0 - 5 /HPF [facility] Urine Squamous Epithelial Cell 0-2 0 - 2 /HPF [facility] Urine Bacteria None Seen None Seen [facility] Hyaline Casts, Urine 0-2 0 - 2 /LPF [facility] 07/02/2025 11:3 0 AM EDT 07/02/2025 2:25 PM EDT [facility] - 07/02/2025 3:06 PM EDT Urine, Clean Catch us Rashida PostabonyasmineApozyP LAB URINE ORDERABLES Final Res ult Performing Organization Address [facility] Co de Phone Number [facility] [address] [place] [phone] * (ABNORMAL) Urinalysis w/reflex microscopic (07/02/2025 11:30 AM EDT) Color Urine Yellow [facility] Appearance Urine Clear [facility] PH 7.5 5.0 - 9.0 [facility] Glucose Urine UA Negative Negative mg/dL [facility] Urine Blood Moderate (2+)(A) Negative [facility] Specific Basalt - Urine 1.015 1.005 - 1.025 [facility] Urine Protein Negative Neg-Trace mg/dL [facility] Urine Ketones Negative Negative mg/dL [facility] Nitrite Urine Negative Negative [facility] Leukocyte Esterase Urine Moderate (2+)(A) Negative [facility] 07/02/2025 11:3 0 AM EDT 07/02/2025 2:25 PM EDT [facility] - 07/02/2025 2:31 PM EDT Urine, Clean Catch us Rashida [employer] LAB URINE ORDERABLES Final Res ult Performing Organization Address City/[facility]/ZIP Co de Phone Number [facility] [address] [place] [phone] * Image-Guided Pap with Age-Based Screening??with CT/NG,??Trichomonas (04/19/2023 2:11 PM EDT) Comment [facility] Comment: This order for age-based cervical cancer and STI screening follows ACOG guidelines(PB 168, 140, ANN973). See individual assays for performing site location. Clinical Information: Routine exam Georgina Goodmant LMP: NONE GIVEN [facility] Prev. PAP: NONE GIVEN Georgina Goodmant Prev. BX: NONE GIVEN Georgina Goodmant SOURCE: None given Georgina Goodmant Statement Of Adequacy: [facility] Comment: Satisfactory for evaluation. Endocervical/transformation zone component present. Partially obscuring inflammation Interpretation/Re sult: Negative for intraepithelial lesion or malignancy. Georgina Goodmant COMMENT: This Pap test has been evaluated with computer assisted technology. [facility] Saw Cleaner: Beb[employer] Comment: BK,CT(ASCP) CT screening location: [address] (Always Message) [facility] [employer] Comment: EXPLANATORY NOTE: The Pap is a [...] RNA, TMA, Urogenital NOT DETECTED NOT DETECTED Georgina Goodmant Neisseria gonorrhoeae RNA, TMA, Urogenital NOT DETECTED NOT DETECTED [facility] Comment Georgina Goodmant Comment: The analytical performance characteristics of this assay, when used to test SurePath(TM) specimens have been determined by [facility]. The modifications have not been cleared or approved by the FDA. This assay has been validated pursuant to the CLIA regulations and is used for clinical purposes. For additional information, please refer to https://[employer]/faq/WTY345 (This link is being provided for information/ educational purposes only.) Trichomonas vaginalis, QL, TMA, PAP Vial NOT DETECTED NOT DETECTED [facility] Comment: The analytical performance characteristics of this assay have been determined by [facility]. The modifications have not been cleared or approved by the FDA. This assay has been validated pursuant to the CLIA regulations and is used for clinical purposes. For additional information, please refer to [email or web address]/ [email or web address] (This link is being provided for information/ educational purposes only.) Pap Vial 04/19/2023 2:11 PM EDT 04/20/2023 5:32 AM EDT Shandra Davis [facility]TOLOGY ORDERABLES F inal Result [facility] [address] [place] [phone] [facility] [place] [facility] [address] [place] [phone] from Last 3 Months or Most Recently Relevant to Health Maintenance Insurance [facility] C3 Care Teams Dedicated Regional Driver Relationship Specialty Start Date End Date Addie Morales MD [address] [place] [phone] PCP - General Family Medicine 08/08/14
[2025-08-21 04:21] LABS: Bacterial Vaginosis PCR NEGATIVE (Negative); Candida Group PCR NOT DETECTED (Not Detect); Candida glab krusei PCR NOT DETECTED (Not Detect); Trichomonas vaginalis PCR NOT DETECTED (Not Detect)
== END 2025-08-20 17:59 | disposition home or self-care (01) ==
LOC: HO.HHCLNP 17:58
PROVIDERS: Visit Provider Family Medicine
DX: N89.8 Other specified noninflammatory disorders of vagina (principal); Z20.2 Contact with and (suspected) exposure to infections with a predominantly sexual mode of transmission
CPT/HCPCS: 81515; 87081

== ENCOUNTER 2025-09-05 10:56 | Outpatient (REF) | payer MEDICAID, SELFPAY ==
--- OUTSIDE RECORDS SUMMARY | 2025-09-05 13:21 | XMS_ITS | Encounter Summary ---
Author Organization [employer] Address [address] [facility] [address] [place] [address] Care Team Providers Care Claim Processor Name Role Phone Addie Morales MD Primary Care Provider [phone] Reason for Visit * Reason Onset Date Comments Nurse Triage 06/28/2025 Encounter Details Date Type Department Care Team ([facility] st Contact Info) Description 06/28/2025 Telephone [facility] [address] [place], [place] [phone] Addie Morales MD [address] [place], [place] [phone] Nurse Triage Social History Tobacco Use Types [...] to Candido Patel to triage below at [phone]. Reports used boric acid last night. Pt [...] caller accepted this outcome. Contact pt at [phone] documented in this encounter Plan of Treatment Upcoming Encounters Date Type Department Care Team (Late st Contact Info) Description 09/13/2025 10:15 AM EST Office Visit [facility] [address] [place] [phone] Addie Morales MD [address] [place] [address] documented as of this encounter Visit Diagnoses Not on filedocumented in this encounter Additional Health Concerns Assessment Noted Time PHQ-9 Depression Total Score: 0 02/23/20 24 2:19 PM EDT documented as of this encounter Care Teams Claim Processor Relationship Specialty Start Date End Date Addie Morales MD [address] [place] [address] [phone] PCP - General Family Medicine 08/08/14 documented as of this encounter
--- OUTSIDE RECORDS SUMMARY | 2025-09-05 13:21 | XMS_ITS | Encounter Summary ---
Author Organization [employer] Address [address] [facility] [address] [place] [address] Care Team Providers Care Deputy Clerk Name Role Phone Addie Morales MD Primary Care Provider [phone] Reason for Referral * Consultation (Routine) - Closed Specialty Diagnoses / Procedures Referred By Contac t Referred To Contact Obstetrics and Gynecology Diagnoses Pelvic pain Abnormal uterine bleeding (AUB) Addie Morales MD [address] [place] [address] Phone: tel: fax: [facility] [address] [facility] [address] [place], [place] Phone: tel: fax: Referral ID Status Reason Start Date Expiration Date V isits Requested Visits Authorized [id number] Closed Specialty Services Required 08/31/2025 08/31/2026 6 6 Encounter Details Date Type Department Care Team (Late st Contact Info) Description 08/30/2025 Orders Only [facility] [address] [place], [place] [phone] Addie Morales MD [address] [place], [place] [phone] Pelvic pain (Primary Dx); Abnormal uterine bleeding (AUB) Social History Tobacco Use Types Packs/Day Years [...] Description 09/13/2025 10:15 AM EST Office Visit [facility] [address] [place] [address] Addie Morales MD [address] [place], [place] [phone] Scheduled Referrals Name Type Priority Associated Diagnoses Order Schedule Referral to Obstetrics / Gynecology Outpatient Referral Routine Pelvic pain Abnormal uterine bleeding (AUB) Expected: 08/30/2025 (Approximate), Expires: 08/30/2026 documented as of this encounter Visit Diagnoses Diagnosis Pelvic pain- Primary Abnormal uterine bleeding (AUB) documented in this encounter Additional Health Concerns Assessment Noted Time PHQ-9 Depression Total Score: 18 025 7:54 AM EDT documented as of this encounter Care Teams Deputy Clerk Relationship Specialty Start Date End Date Addie Morales MD [address] [place] [phone] PCP - General Family Medicine 08/08/14 documented as of this encounter
--- OUTSIDE RECORDS SUMMARY | 2025-09-05 13:21 | XMS_ITS | Encounter Summary ---
Author Organization [employer] Address [address] [facility] [address] [place] [address] Care Team Providers Care Oil Bay Technician Name Role Phone Addie Morales MD Primary Care Provider [phone] Encounter Details Date Type Department Care Team ([facility] st Contact Info) Description 07/02/2025 Results Follow-Up [facility] [address] [place] [address] Rashida Chen FNP [address] [place] [address] Bacterial Vaginosis Panel Social History Tobacco Use [...] Answer Date of Assessment Author Patient Health Questionnaire-2 Score 2 10/2024 7:54 AM EDT Manan Tate * Little interest or pleasure in doing things Answer Date of Assessment Author Not at all 07/25/2025 7:54 AM EDT Jhoan Tate * Feeling down, depressed, or hopeless Answer Date of Assessment Author More than half the days 07/25/2025 7:54 AM EDT Manan Regalado * Trouble falling or staying asleep, or sleeping too much Answer Date of Assessment Author Nearly every day 07/25/2025 7:54 AM EDT Manan Tate * Feeling tired or having little energy Answer Date of Assessment Author Nearly every day 07/25/2025 7:54 AM EDT Manan Tate * Poor appetite or overeating Answer Date of Assessment Author Nearly every day 07/25/2025 7:54 AM EDT Manna Tate * Feeling bad about yourself - or that you are a failure or have let yourself or your family down Answer Date of Assessment Author Nearly every day 07/25/2025 7:54 AM EDT Manan Tate * Trouble concentrating on things, such as reading the newspaper or watching television Answer Date of Assessment Author More than half the days 07/25/2025 7:54 AM EDT Manan Regalado * Moving or speaking so slowly that other people could have noticed? Or the opposite - being so fidgety or restless that you have been moving around a lot more than usual. Answer Date of Assessment Author More than half the days 07/25/2025 7:54 AM EDT Manan Regalado * Thoughts that you would be better off or hurting yourself in some way Answer Date of Assessment Author Not at all 07/25/2025 7:54 AM EDT Jhoan Tate * Patient Health Questionnaire-9 Score Answer Date of Assessment Author 18 07/25/2025 7:54 AM EDT Jhoan Tate * How difficult have these problems made it for you to do your work, take care of things at home, or get along with other people? Answer Date of Assessment Author Very difficult 07/25/2025 7:54 AM EDT Jhoan Tate * Over the last 2 weeks, how often have you been bothered by any of the following problems? Question Answer Date of Assessment Author Feeling nervous, anxious, or on edge 3 10/2024 7:55 AM MARYANT Manan Tate Not being able to stop or co ntrol worrying 3 07/25/2025 7:55 AM Manan Harris Worrying too much about diff erent things 3 07/25/2025 7:55 AM Manan Harris Trouble relaxing 3 07/25/2025 7:55 AM EDT Manan Regalado Being so restless that it is hard to sit still 3 07/25/2025 7:55 AM Manan Harris Becoming easily annoyed or irritable 3 10/2024 7:55 AM Manan Harris Feeling afraid as if somethi ng awful might happen 3 07/25/2025 7:55 AM Manan Harris GAGE-7 Total Score 21 07/25/2025 7:55 AM Manan Harris documented as of this encounter Plan of Treatment Upcoming Encounters Date Type Department Care Team (Late st Contact Info) Description 09/13/2025 10:15 AM EST Office Visit [facility] [address] [place] [address] Addie Morales MD [address] [place] [address] documented as of this encounter Visit Diagnoses Not on filedocumented in this encounter Additional Health Concerns Assessment Noted Time PHQ-9 Depression Total Score: 0 02/23/20 24 2:19 PM EDT documented as of this encounter Care Teams Oil Bay Technician Relationship Specialty Start Date End Date Addie Morales MD [address] [place] [address] PCP - General Family Medicine 08/08/14 documented as of this encounter
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
--- OUTSIDE RECORDS SUMMARY | 2025-09-05 13:21 | XMS_ITS | Encounter Summary ---
Author Organization [facility] Address [address] [place] [address] Care Team Providers Care Pipe Straightener Name Role Phone Addie Morales MD Primary Care Provider [phone] Encounter Details Date Type Department Care Team (Late st Contact Info) Description 09/05/2025 Orders Only [facility] [address], [place] [phone] Addie Morales MD [address] [place], [place] [phone] Transaminitis (Primary Dx) Social History Tobacco Use Types Packs/Day Years [...] Description 09/13/2025 10:15 AM EST Office Visit [facility] [address] [place] [address] Addie Morales MD [address] [place] [address] Scheduled Orders Name Type Priority Associated Diagnoses Orde r Schedule Hepatic Function Panel Lab Routine Transaminitis Expected: 09/05/2025 (Approximate), Expires: 09/05/2026 Hepatitis C Antibody with Reflex to HCV, RNA, Quantitative, Real-Time PCR Lab Routine Transaminitis Expected: 09/05/2025 (Approximate), Expires: 09/05/2026 Hepatitis B Surface Antibody, Qualitative Lab Routine Transaminitis Expected: 09/05/2025 (Approximate), Expires: 09/05/2026 Hepatitis B Core Antibody, Total Lab Routine Transaminitis Expected: 09/05/2025 (Approximate), Expires: 09/05/2026 Hepatitis B surface antigen, EIA Lab Routine Transaminitis Expected: 09/05/2025 (Approximate), Expires: 09/05/2026 Hepatitis A Antibody, Total Lab Routine Transaminitis Expected: 09/05/2025 (Approximate), Expires: 09/05/2026 documented as of this encounter Visit Diagnoses Diagnosis Transaminitis- Primary Nonspecific elevation of levels of transaminase or lactic acid dehydrogenase (LDH) documented in this encounter Additional Health Concerns Assessment Noted Time PHQ-9 Depression Total Score: 18 025 7:54 AM EDT documented as of this encounter Care Teams Pipe Straightener Relationship Specialty Start Date End Date Addie Morales MD [address] [place] [address] PCP - General Family Medicine 08/08/14 documented as of this encounter
[2025-09-05 13:41] LABS: Alanine Aminotransferase 87 U/L (0-31); Albumin Level 4.7 g/dL (3.5-5.0); Alkaline Phosphatase 72 U/L (39-117); Aspartate Amino Transferase 45 U/L (5-31); Total Protein 7.4 g/dL (6.5-8.0)
[2025-09-06 03:57] LABS: HBS Num1 0.77 mIU/mL (0-7.99); HBc Num1 0.10 S/CO (0.00-0.79); HBsAGNum1 0.44 S/CO (0.00-0.99); Hepatitis B Surface Antigen Negative (Negative); ~HepC Num1 0.08 S/CO (0.00-0.79); ~Hepatitis B Surface Antibody NONREACTIVE (Nonreactive); ~Hepatitis C Antibody Nonreactive (Nonreactive)
[2025-09-07 03:31] LABS: ~Hepatitis A Antibody IgG 4.88 S/CO (0.00-0.99)
== END 2025-09-05 10:57 | disposition home or self-care (01) ==
LOC: HO.HHCL 10:56
PROVIDERS: PCP Family Medicine; Visit Provider Family Medicine
DX: R74.01 Elevation of levels of liver transaminase levels (principal); Z11.59 Encounter for screening for other viral diseases
CPT/HCPCS: 36415; 80076; 86704; 86706; 86708; 86803; 87340

== ENCOUNTER 2025-09-07 12:20 | Emergency (ER) | payer MEDICAID, SELFPAY ==
[2025-09-07 12:29] VITALS: BP 110/61; PULSE 86; RESP 16; TEMP 37.1; O2SAT 98; BMI 35.3
--- NOTE | 2025-09-07 12:29 | ED_ITS ---
HPI - General Adult General Chief complaint: Abdominal Pain Stated complaint: Abnormal Labs Related Data Home Medications ?Medication ?Instructions ?Recorded ?Confirmed loratadine 10 mg tablet (Allergy 10 mg PO DAILY Relief (loratadine)) Allergies Allergy/AdvReac Type Severity Reaction Status Date / Time No Known Allergies (No Known Allergy Unverified 09/07/25 12:32 Allergies*) seasonal Allergy Unknown Unknown Uncoded 09/07/25 12:32 PMFSH Past Medical History Medical History (Updated 09/09/25 @ 17:41 by Angely Metz NP) History of depression Hx of anxiety disorder Surgical History (Updated 08/29/20 @ 14:28 by FANNIE Louise) Hx of section Family History Family History (Updated 08/29/20 @ 14:32 by FANNIE Louise) Father Schizophrenia Mother History of fibromyalgia Social History Social History (Updated 08/29/20 @ 14:28 by FANNIE Louise) Alcohol intake: current Alcohol intake frequency: holidays/special occasions only Advance Directives: No Advance Directives Information Provided: Yes Sexual orientation: Straight/Heterosexual Gender identity: Female Physical Exam ED Vital Signs: BMI result Body Mass Index 35.3 Course Course Course Narrative: This is a rapid medical exam performed by Danish Metz NP: Additional HPI, ROS, PE not included below will be deferred to primary provider. Patient is a 24y/o F presenting with 1 mo of abd pain. LFTs have been elevated for 2 mos. Following with PCP. Recently told she tested positive for hepatitis A. Plan: labs Patient left the emergency department before myself or any of the other clinicians could review or explain physical exam findings, test results, need or lack there of for additional testing, treatment options, or a treatment plan. Of note, did receive call from patient's PCP after patient LWCT. noted that patient already has MRI scheduled upcoming. She also noted that her Hep A was just a positive IgG. Medical Decision Making Lab Data 09/07/25 12:39 09/07/25 12:39 Labs: Lab Results 09/07/25 Range/Units 12:39 WBC 7.2 (4.8-10.8) X10*3/uL RBC 4.34 (4.20-5.50) X10*6/uL Hgb 12.9 (12.0-16.0) g/dl Hct 38.0 (37.0-47.0) % MCV 87.6 (80.0-98.0) fL MCH 29.7 (27.0-33.0) pg MCHC 33.9 (31.0-35.0) g/dl RDW 12.2 (11.0-16.0) % Plt Count 264 (160-400) X10*3/uL MPV 9.5 (9.4-12.3) fL Immature Gran % (Auto) 0.3 (0.0-0.4) % Neut % (Auto) 51.7 (45-73) % Lymph % (Auto) 40.3 H (20-40) % [place] % (Auto) 5.6 (2-11) % Eos % (Auto) 1.7 (0-4) % Baso % (Auto) 0.4 (0-2) % Lymph # (Auto) 2.9 (1.2-4.9) X10*3/uL [place] # (Auto) 0.4 (0.1-1.2) X10*3/uL Eos # (Auto) 0.1 (0.0-0.4) X10*3/uL Baso # (Auto) 0.0 (0.0-0.2) X10*3/uL Abs Immat Gran (auto) 0.02 (0.00-0.03) X10*3/uL Absolute Neuts (auto) 3.7 (2.0-8.3) x10*3/uL Absolute Nucleated RBC 0.000 (0.0-0.012) X10*3/uL Nucleated RBC % (auto) 0.0 (0.0-0.2) /100WBC Smear Tech's Comments VERIFIED Sodium 143 (135-145) mmol/L Potassium 4.7 D (3.3-5.1) mmol/L Chloride 108 (96-108) mmol/L Carbon Dioxide 30 H (22-29) mmol/L Anion Gap 10 L (12-20) BUN 8 L (9-16) mg/dL Creatinine 0.70 (0.5-1.4) mg/dL Estim Creat Clear Calc 103.1 Estimated GFR > 60 Random Glucose 98 (60-115) mg/dL Calcium 9.3 (8.4-10.2) mg/dL Total Bilirubin 0.5 (0.0-1.0) mg/dL Direct Bilirubin 0.2 (0.0-0.5) mg/dL AST 30 (5-31) U/L ALT 57 H (0-31) U/L Alkaline Phosphatase 73 (39-117) U/L Total Protein 7.3 (6.5-8.0) g/dL Albumin 4.6 (3.5-5.0) g/dL Beta HCG, Quant < 2 mIU/mL Discharge Plan Discharge Clinical Impression: Abdominal pain Patient Disposition: Left W/O Completing Treatment Prescriptions: No Action loratadine [Allergy Relief (loratadine)] 10 mg tablet 10 mg PO DAILY Discharge Date/Time: 09/07/25 15:37
[2025-09-07 12:49] LABS: Hematocrit 38.0 % (37.0-47.0); Hemoglobin 12.9 g/dl (12.0-16.0); Imm Gran Abs Auto 0.02 X10*3/uL (0.00-0.03); Imm Gran Pct Auto 0.3 % (0.0-0.4); Lymphocytes Absolute Auto 2.9 X10*3/uL (1.2-4.9); MANUAL DIFF FLAG SCAN; Mean Corpuscular HGB Conc 33.9 g/dl (31.0-35.0); Mean Corpuscular Hemoglobin 29.7 pg (27.0-33.0); Mean Corpuscular Volume 87.6 fL (80.0-98.0); NRBC Abs Auto 0.000 X10*3/uL (0.0-0.012); NRBC Pct Auto 0.0 /100WBC (0.0-0.2); Platelet Count 264 X10*3/uL (160-400); Red Blood Count 4.34 X10*6/uL (4.20-5.50); SCAN SMEAR FLAG 1; White Blood Count 7.2 X10*3/uL (4.8-10.8)
[2025-09-07 13:03] LABS: Alanine Aminotransferase 57 U/L (0-31); Albumin Level 4.6 g/dL (3.5-5.0); Alkaline Phosphatase 73 U/L (39-117); Anion Gap 10 (12-20); Aspartate Amino Transferase 30 U/L (5-31); Blood Urea Nitrogen 8 mg/dL (9-16); Calcium 9.3 mg/dL (8.4-10.2); Carbon Dioxide 30 mmol/L (22-29); Chloride 108 mmol/L (96-108); Creatinine Clr Calc Pharmacy 103.1; Estimated Glomerular Filt Rate > 60; Potassium 4.7 mmol/L (3.3-5.1); Sodium 143 mmol/L (135-145); Total Protein 7.3 g/dL (6.5-8.0)
== END 2025-09-07 15:37 | disposition left against medical advice (07) ==
LOC: HO.ED 15:34
PROVIDERS: Registered Nurse Emergency; Emergency Provider Emergency Medicine; PCP Family Medicine
DX: R10.9 Unspecified abdominal pain (principal); Z53.21 Procedure and treatment not carried out due to patient leaving prior to being seen by health care provider
CPT/HCPCS: 36415; 80048; 80076; 84702; 85025; 99281